=== PATIENT | male | born 1965 | race Two or more races ===

== ENCOUNTER 2016-11-04 11:59 | Emergency (ER) | payer SELFPAY ==
[~2016-11-04] VITALS: Ht 160 cm; Wt 81.6 kg
[2016-11-04 12:55] VITALS: BP 145/96
[2016-11-04] MEDS ORDERED: NAPROXEN 500 MG TABLET PO STA (14:16)
[2016-11-04] MEDS ORDERED: HYDROCODONE/APAP 5/325MG TABLET. PO ONE (14:30)
[2016-11-04] MEDS ORDERED: CYCLOBENZAPRINE 10 MG TABLET. PO ONE (14:30)
[2016-11-04] MEDS ORDERED: CYCL10TA2 PO (14:32)
[2016-11-04] MEDS ORDERED: NAPR500T8 PO (14:32)
[2016-11-04] MEDS ORDERED: HYDR-971 PO (14:32)
--- NOTE | 2016-11-04 14:32 | PHYS DOC ---
Past Medical History Past Medical History: Kidney Stone Past Surgical History: Cholecystectomy Additional Past Surgical Histo: KIDNEY STONES Alcohol Use: Occasionally Drug Use: None Adult General Chief Complaint Chief Complaint: BACK PAIN OR INJURY HPI HPI Patient is a 51 year old male who presents with 10 out of 10 mid to low back pain that began 6 days ago. 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 Patient denies any trauma. Denies any loss of bowel bladder function. Denies any pain radiating to bilateral lower extremities. Denies any numbness or tingling to bilateral lower extremities. Patient denies any urgency frequency or dysuria, denies any chance she could have a kidney stone. Denies any hematuria. Review of Systems Review of Systems Constitutional: Denies fever or chills [] Eyes: Denies change in visual acuity, redness, or eye pain [] HENT: Denies nasal congestion or sore throat : Denies dysuria or hematuria [] Musculoskeletal:mid and low back pain Integument: Denies rash or skin lesions [] Neurologic: Denies headache, focal weakness or sensory changes [] Endocrine: Denies polyuria or polydipsia [] Current Medications Current Medications Current Medications Medications (Trade) Dose Ordered Sig/Ole Start Time Stop Time Status Last Admin Dose Admin Acetaminophen/ Hydrocodone Bitart (Lortab 5/325) 1 tab 1X ONCE 11/04/16 14:30 11/04/16 14:31 Cyclobenzaprine HCl (Flexeril) 10 mg 1X ONCE 11/04/16 14:30 11/04/16 14:31 Naproxen (Naprosyn) 500 mg 1X STAT 11/04/16 14:16 11/04/16 14:17 DC Allergies Allergies Allergies Coded Allergies Type Severity Reaction Last Updated Verified No Known Drug Allergies 04/25/15 No Physical Exam Physical Exam Constitutional: Well developed, well nourished, no acute distress, non-toxic appearance. [] HENT: Normocephalic, atraumatic, bilateral external ears normal, oropharynx moist, no oral exudates, nose normal. [] Skin: Warm, dry, no erythema, no rash. [] Back: Diffuse paraspinal muscle tenderness to bilateral mid and lower back, no midline tenderness, no CVA tenderness. [] Extremities: No tenderness, no cyanosis, no clubbing, ROM intact, no edema. [] Neurologic: Alert and oriented X 3, normal motor function, normal sensory function, no focal deficits noted. [] Psychologic: Affect normal, judgement normal, mood normal. [] Current Patient Data Vital Signs Vital Signs Date Time Temp Pulse Resp B/P Pulse Ox O2 Delivery O2 Flow Rate FiO2 11/04/16 12:55 97.6 61 18 97 Room Air 97.6 EKG EKG [] Radiology/Procedures Radiology/Procedures [] Course & Med Decision Making Course & Med Decision Making Pertinent Labs and Imaging studies reviewed. (See chart for details) Patient is in the ED with back pain that appears to be originating from heavy lifting at work. He was discharged with instructions to follow-up with the PCP in one week. Discharged with naproxen and Flexeril and [place] 10 tablets. Provided return precautions and discharged in stable condition. Dragon Disclaimer Dragon Disclaimer This electronic medical record was generated, in whole or in part, using a voice recognition dictation system. Departure Departure Impression: Primary Impression: Low back pain Additional Impression: Thoracic back pain Disposition: 01 HOME, SELF-CARE Condition: STABLE Referrals: NO PCP (PCP) Follow-up with your own doctor in one week Patient Instructions: Back Pain, Adult, [id number] Additional Instructions: You were seen for back pain. We recommend you avoid heavy lifting for the next 7 days. Apply heat to your back. Follow-up with your doctor in one week. Come back to the ED for any concerning symptoms. Scripts Cyclobenzaprine Hcl 10 Mg Tablet1 Tab PO TID #30 TAB Prov:BARAK SHETTY APRN 11/04/16 Naproxen 500 Mg Tablet.dr1 Tab PO BID #60 TAB Ref 2 Prov:BARAK SHETTY APRN 11/04/16 Hydrocodone/Apap 5-325 ([place] 5-325 Tablet)1 Each Tablet1-2 Tab PO Q4-6HRS #10 TAB Prov:BARAK SHETTY APRN 11/04/16 Problem Qualifiers Primary Impression: Low back pain Chronicity: acute Back pain laterality: bilateral Sciatica presence: without sciatica Qualified Code: M54.5 - Low back pain Additional Impression: Thoracic back pain Chronicity: acute Back pain laterality: bilateral Qualified Code: M54.6 - Pain in thoracic spine BARAK SHETTY APRN Nov 04, 2016 14:32
== END 2016-11-04 14:34 | disposition home or self-care (01) ==
LOC: ER 12:10
DX: M54.5 Low back pain (principal); M54.6 Pain in thoracic spine; Z87.442 Personal history of urinary calculi; Z90.49 Acquired absence of other specified parts of digestive tract
CPT/HCPCS: 99284

== ENCOUNTER 2021-06-30 23:50 | Inpatient (IN) | payer SELFPAY ==
[~2021-06-30] VITALS: Ht 160 cm; Wt 84.1 kg
[~2021-06-30 23:50] MED LIST: CYCL10TA19 PO; HYDR-3164 PO; NAPR500T8 PO
[2021-07-01] VITALS (28 sets, daily range): BP systolic 91–141; BP diastolic 61–95
[2021-07-01] MEDS ORDERED: HEPARIN for SUB-Q USE 5,000 UNIT/ML VIAL. SQ ONE (00:15)
[2021-07-01] MEDS ORDERED: ASPIRIN CHEWABLE 81 MG TABLET. PO ONE (00:15)
[2021-07-01] MEDS ORDERED: HEPARIN for IV BOLUS 10,000 UNIT/10 ML VIAL. IV ONE (00:15)
[2021-07-01 00:17] LABS: BASO % 0 % (0-3); EOS % 0 % (0-3); HEMATOCRIT 47.5 % (39.0-53.0); HEMOGLOBIN 16.3 g/dL (13.0-17.5); LYMPH # 3.6 x10^3/uL (1.0-4.8); LYMPH % 27 % (24-48); MEAN CORPUSCULAR HEMOGLOBIN 31 pg (25-35); MEAN CORPUSCULAR HGB CONC 34 g/dL (31-37); MEAN CORPUSCULAR VOLUME 92 fL (79-100); MONO # 0.9 x10^3/uL (0.0-1.1); MONO % 7 % (0-9); NEUT # 8.6 x10^3/uL (1.8-7.7); NEUT % 65 % (31-73); PLATELET COUNT 369 x10^3/uL (140-400); RED BLOOD COUNT 5.18 x10^6/uL (4.30-5.70); RED CELL DISTRIBUTION WIDTH 14.1 % (11.5-14.5); WHITE BLOOD COUNT 13.2 x10^3/uL (4.0-11.0)
--- NOTE | 2021-07-01 00:18 | PHYS DOC ---
Past Medical History Past Medical History: Kidney Stone Past Surgical History: Cholecystectomy Additional Past Surgical Histo: KIDNEY STONES Smoking Status: Current Every Day Smoker Alcohol Use: Occasionally Drug Use: None General Adult EDM: Chief Complaint: CHEST PAIN HPI: HPI: Patient is a 55 year old male who present to ER due to substernal chest pain that started 1 hour ago. Patient denies any nausea vomiting. Patient denies any cough or fever patient denies any history of hypertension or diabetic history of coronary artery disease. Patient admitted of using cocaine earlier today. Patient is currently still in pain at this time Review of Systems: Review of Systems: Constitutional: Denies fever or chills. [] Eyes: Denies change in visual acuity. [] HENT: Denies nasal congestion or sore throat. [] Respiratory: Denies cough or shortness of breath. [] Cardiovascular: Positive for chest pain, no edema GI: Denies abdominal pain, nausea, vomiting, bloody stools or diarrhea. [] : Denies dysuria. [] Musculoskeletal: Denies back pain or joint pain. [] Integument: Denies rash. [] Neurologic: Denies headache, focal weakness or sensory changes. [] Endocrine: Denies polyuria or polydipsia. [] Lymphatic: Denies swollen glands. [] Psychiatric: Denies depression or anxiety. [] Heart Score: C/O Chest Pain: Yes HEART Score for Chest Pain: HEART Score for Chest Pain Response (Comments) Value History Highly Suspicious [address] Depression 2 Age >45 - < 65 1 Risk Factors >3 Risk Factors or Hx CAD 2 Troponin >1-<3x Normal Limit 1 Total 8 Risk Factors: Risk Factors: DM, Current or recent (<one month) smoker, HTN, HLP, family history of CAD, obesity. Risk Scores: Score 0 - 3: 2.5% MACE over next 6 weeks - Discharge Home Score 4 - 6: 20.3% MACE over next 6 weeks - Admit for Clinical Observation Score 7 - 10: 72.7% MACE over next 6 weeks - Early Invasive Strategies Current Medications: Current Medications Medications (Trade) Dose Ordered Sig/Ole Start Time Stop Time Status Last Admin Dose Admin Aspirin (Aspirin Chewable) 324 mg 1X ONCE 07/01/21 00:15 07/01/21 00:16 Heparin Sodium (Porcine) (Heparin Sodium) 4,000 unit 1X ONCE 07/01/21 00:15 11/1/21 00:16 Allergies: Allergies: Allergies Coded Allergies Type Severity Reaction Last Updated Verified No Known Drug Allergies 04/25/15 No Physical Exam: PE: Constitutional: Well developed, well nourished, no acute distress, non-toxic appearance. [] HENT: Normocephalic, atraumatic, bilateral external ears normal, oropharynx moist, no oral exudates, nose normal. [] Eyes: PERRLA, EOMI, conjunctiva normal, no discharge. [] Neck: Normal range of motion, no tenderness, supple, no stridor. [] Cardiovascular:Heart rate regular rhythm, no murmur [] Lungs & Thorax: Bilateral breath sounds clear to auscultation [] Abdomen: Bowel sounds normal, soft, no tenderness, no masses, no pulsatile masses. [] Skin: pale and diaphoresis Back: No tenderness, no CVA tenderness. [] Extremities: No tenderness, no cyanosis, no clubbing, ROM intact, no edema. [] Neurologic: Alert and oriented X 3, normal motor function, normal sensory function, no focal deficits noted. [] Psychologic: Affect normal, judgement normal, mood normal. [] Current Patient Data: Labs: Laboratory Tests Test 07/01/21 00:05 White Blood Count 13.2 x10^3/uL Red Blood Count 5.18 x10^6/uL Hemoglobin 16.3 g/dL Hematocrit 47.5 % Mean Corpuscular Volume 92 fL Mean Corpuscular Hemoglobin 31 pg Mean Corpuscular Hemoglobin Concent 34 g/dL Red Cell Distribution Width 14.1 % Platelet Count 369 x10^3/uL Neutrophils (%) (Auto) 65 % Lymphocytes (%) (Auto) 27 % Monocytes (%) (Auto) 7 % Eosinophils (%) (Auto) 0 % Basophils (%) (Auto) 0 % Neutrophils # (Auto) 8.6 x10^3/uL Lymphocytes # (Auto) 3.6 x10^3/uL Monocytes # (Auto) 0.9 x10^3/uL Eosinophils # (Auto) 0.0 x10^3/uL Basophils # (Auto) 0.0 x10^3/uL Current Medications Medications (Trade) Dose Ordered Sig/Ole Route PRN Reason Start Time Stop Time Status Last Admin Dose Admin Aspirin (Aspirin Chewable) 324 mg 1X ONCE PO 07/01/21 00:15 07/01/21 00:16 DC 07/01/21 00:18 Heparin Sodium (Porcine) (Heparin Sodium) 4,000 unit 1X ONCE IV 07/01/21 00:15 07/01/21 00:16 DC 07/01/21 00:21 Heparin Sodium (Porcine) (Heparin Sodium) 5,000 unit STK-MED ONCE SQ 07/01/21 00:15 07/01/21 00:15 DC EKG: EKG: EKG was done at 000, heart rate of 87 bpm, SINUS RHYTHM, ST SEGMENT ELEVATION V2, V3, V4,V5, V6, aVL, ST SEGMENT DEPRESSION IN III, aVF Radiology/Procedures: Radiology/Procedures: Chest x-ray did not show any acute PROBLEM. Course & Med Decision Making: Course & Med Decision Making Pertinent Labs and Imaging studies reviewed. (See chart for details) Patient is a 55-year-old male who present to ER due to substernal chest pain, EKG is consistent with STEMI. I discussed with the director of occupational health on-call Dr. Luis Enrique Rivera AT 005 AM, AGREED TO COME IN TO TAKE PATIENT TO DIFFERENTIAL SPECIALIST URGENTLY. HE RECOMMENDED TO GIVE PATIENT FULL DOSE ASPIRIN AND 4000 UNITS OF HEPARIN IV BOLUS. Discussed with hospitalist on-call Dr. Elvis Cunningham who agreed to admit the patient. Dragon Disclaimer: Kimmie Disclaimer: This electronic medical record was generated, in whole or in part, using a voice recognition dictation system. Departure Departure Impression: Primary Impression: STEMI (ST elevation myocardial infarction) Disposition: ADMITTED INPATIENT Admitting Physician: LANIE (DR. SHELTON) Condition: STABLE Referrals: NO PCP (PCP) SOFIA LEHMAN DO Jul 01, 2021 00:18
--- NOTE | 2021-07-01 00:19 | EKG ---
[facility] [address] [place] [address] Test Date: 2021-07-01 Test Time: 00:00:14 Pat Name: JOSSELINE DAI Department: Room: Gender: M Tool Crib Attendant: : 1965 Requested By: SOFIA LEHMAN Order Number: [id number] Reading MD: Luis Enrique Guzman Measurements Intervals [place] Rate: 87 P: 0 CT: 176 QRS: -41 QRSD: 90 T: -1 QT: 346 QTc: 417 Interpretive Statements SINUS RHYTHM QRS(T) CONTOUR ABNORMALITY CONSISTENT WITH POSSIBLY ACUTE OR RECENT ANTERIOR INFARCT ST & T ABNORMALITY, CONSIDER INFERIOR ISCHEMIA OR LEFT VENTRICULAR STRAIN No previous ECG available for comparison Electronically Signed On 07-08-2021 10:56:35 BLOOD TESTER FOWL by Luis Enrique Guzman
[2021-07-01] MEDS ORDERED: MIDAZOLAM HCL/PF 2 MG/2 ML VIAL. ONE (00:29)
[2021-07-01] MEDS ORDERED: fentaNYL PF VIAL 100 MCG/2 ML VIAL ONE (00:29)
[2021-07-01 00:30] LABS: PROTHROMBIN TIME PATIENT 12.6 SEC (11.7-14.0)
[2021-07-01] MEDS ORDERED: LIDOCAINE 1% Multi-Dose 20 ML VIAL. ONE (00:30)
[2021-07-01] MEDS ORDERED: IODIXANOL 320 MG/ML 100 ML VIAL. ONE ×2 (00:30→01:19)
[2021-07-01 00:32] LABS: CALCIUM 8.8 mg/dL (8.5-10.1); CREATININE 1.3 mg/dL (0.7-1.3); GFR 57.3; POTASSIUM 3.3 mmol/L (3.5-5.1)
[2021-07-01 00:35] LABS: ALBUMIN 4.2 g/dL (3.4-5.0); ALBUMIN/GLOBULIN RATIO 1.1 (1.0-1.7); MAGNESIUM 2.2 mg/dL (1.8-2.4); TOTAL BILIRUBIN 0.4 mg/dL (0.2-1.0); TOTAL PROTEIN 7.9 g/dL (6.4-8.2)
--- NOTE | 2021-07-01 00:46 | RAD ---
XR CHEST 1V 07/01/2021 12:16 AM INDICATION: Chest pain COMPARISON: None available TECHNIQUE: Portable frontal view of the chest is provided. FINDINGS: The cardiomediastinal silhouette is within normal limits. Lungs are clear. There are no significant pleural effusions. There is no pulmonary vascular congestion. No pneumothora x. No suspicious osseous abnormality. IMPRESSION: There is no acute cardiopulmonary process. Electronically signed by: Gail Acevedo MD (07/01/2021 12:44 AM) [facility]
[2021-07-01] MEDS ORDERED: BIVALIRUDIN 250 MG VIAL. IV ONE ×2 (01:07→01:45)
[2021-07-01] MEDS ORDERED: AMIODARONE 150 MG/3 ML VIAL ONE (01:15)
[2021-07-01] MEDS ORDERED: IODIXANOL 320 MG/ML 100 ML VIAL. IART ONE (01:15)
[2021-07-01] MEDS ORDERED: MIDAZOLAM HCL/PF 2 MG/2 ML VIAL. IV ONE (01:15)
[2021-07-01] MEDS ORDERED: fentaNYL PF VIAL 100 MCG/2 ML VIAL IV ONE (01:15)
[2021-07-01] MEDS ORDERED: LIDOCAINE 1% Multi-Dose 20 ML VIAL. INJ ONE (01:15)
[2021-07-01] MEDS ORDERED: ONDANSETRON PF 4 MG/2 ML VIAL. ONE (01:29)
[2021-07-01] MEDS ORDERED: AMIODARONE 150 MG/3 ML VIAL IVP ONE (01:45)
[2021-07-01] MEDS ORDERED: AMIODARONE 450 MG in IV DEXTROSE 5% 250 ML IV ONE (01:45)
[2021-07-01] MEDS ORDERED: ONDANSETRON PF 4 MG/2 ML VIAL. IVP ONE (01:45)
[2021-07-01] MEDS ORDERED: CLOPIDOGREL BISULFATE 75 MG TABLET PO ONE (01:45)
--- NOTE | 2021-07-01 01:57 | PDOC2 ---
CONSULT Date of Consult Date of Consult DATE: 07/01/21 TIME: 01:48 Reason for Consult Reason for Consult: chest pain, STEMI Referring Physician Referring Physician: Dr. Barnes Identification/Chief Complaint Chief Complaint Chest pain Source Source: Chart review, Patient History of Present Illness Reason for Visit: The patient is a 55 year old Croatian speaking male who presented to the ER with a history of one hour of chest pain. He reports using EtOH and cocaine earlier this evening. He denies a history of CAD. His EKG is consistent with an acute anterior IA. He was given MSO4 for pain and was treated with IV heparin and ASA. Risks and benefits of an emergency heart cath were discussed with the patient and his - consent was obtained. Past Medical History Cardiovascular: HTN Past Surgical History Past Surgical History: No pertinent history Family History Family History: Hypertension Social History ALCOHOL: social Drugs: Cocaine Current Problem List Problem List Problems Medical Problems: (1) STEMI (ST elevation myocardial infarction) Status: Acute Current Medications Current Medications Current Medications Aspirin (Aspirin Chewable) 324 mg 1X ONCE PO Last administered on 07/01/21at 00:18; Start 07/01/21 at 00:15; Stop 07/01/21 at 00:16; Status DC Heparin Sodium (Porcine) (Heparin Sodium) 4,000 unit 1X ONCE IV Last administered on 07/01/21at 00:21; Start 07/01/21 at 00:15; Stop 07/01/21 at 00:16; Status DC Heparin Sodium (Porcine) (Heparin Sodium) 5,000 unit STK-MED ONCE SQ ; Start at 00:15; Stop 07/01/21 at 00:15; Status DC Fentanyl Citrate (Fentanyl 2ml Vial) 100 mcg STK-MED ONCE .ROUTE ; Start 07/01/21 at 00:29; Stop 07/01/21 at 00:30; Status DC Midazolam HCl (Versed) 2 mg STK-MED ONCE .ROUTE ; Start 07/01/21 at 00:29; Stop 07/01/21 at 00:30; Status DC Iodixanol (Visipaque 320) 100 ml STK-MED ONCE .ROUTE ; Start 07/01/21 at 00:30; Stop 07/01/21 at 00:30; Status DC Lidocaine HCl (Lidocaine 1% 20ml Vial) 20 ml STK-MED ONCE .ROUTE ; Start 07/01/21 at 00:30; Stop 07/01/21 at 00:30; Status DC Heparin Sodium/ Sodium Chloride 500 ml @ As Directed STK-MED ONCE .ROUTE ; Start 07/01/21 at 00:30; Stop 07/01/21 at 00:31; Status DC Heparin Sodium/ Sodium Chloride 500 ml @ As Directed STK-MED ONCE .ROUTE ; Start 07/01/21 at 00:42; Stop 07/01/21 at 00:42; Status DC Potassium Chloride/Water 100 ml @ 50 mls/hr Q2H IV ; Start 07/01/21 at 00:45; Stop 07/01/21 at 04:44 Heparin Sodium/ Sodium Chloride (HEPARIN for ARTERIAL LINE FLUSH) 1,000 unit 1X ONCE IART ; Start 07/01/21 at 01:15; Stop 07/01/21 at 01:16; Status DC Midazolam HCl (Versed) 2 mg 1X ONCE IV ; Start 07/01/21 at 01:15; Stop 07/01/21 at 01:16; Status DC Fentanyl Citrate (Fentanyl 2ml Vial) 100 mcg 1X ONCE IV ; Start 07/01/21 at 01:15; Stop 07/01/21 at 01:16; Status DC Iodixanol (Visipaque 320) 100 ml 1X ONCE IART ; Start 07/01/21 at 01:15; Stop 07/01/21 at 01:16; Status DC Lidocaine HCl (Lidocaine 1% 20ml Vial) 20 ml 1X ONCE INJ ; Start 07/01/21 at 01:15; Stop 07/01/21 at 01:16; Status DC Bivalirudin (Angiomax) 250 mg STK-MED ONCE IV ; Start 07/01/21 at 01:07; Stop 07/01/21 at 01:07; Status DC Dopamine HCl/ Dextrose 250 ml @ As Directed STK-MED ONCE IV ; Start 07/01/21 at 01:10; Stop 07/01/21 at 01:11; Status DC Amiodarone HCl (Cordarone) 150 mg STK-MED ONCE .ROUTE ; Start 07/01/21 at 01:15; Stop 07/01/21 at 01:15; Status DC Iodixanol (Visipaque 320) 100 ml STK-MED ONCE .ROUTE ; Start 07/01/21 at 01:19; Stop 07/01/21 at 01:19; Status DC Amiodarone HCl 450 mg/Dextrose 259 ml @ 33 mls/hr 1X ONCE IV ; Start 07/01/21 at 01:45; Stop 07/01/21 at 09:35 Ondansetron HCl (Zofran) 4 mg STK-MED ONCE .ROUTE ; Start 07/01/21 at 01:29; Stop 07/01/21 at 01:30; Status DC Bivalirudin (Angiomax) 250 mg 1X ONCE IV ; Start 07/01/21 at 01:45; Stop 07/01/21 at 01:46; Status DC Clopidogrel Bisulfate (Plavix) 600 mg 1X ONCE PO ; Start 07/01/21 at 01:45; Stop 07/01/21 at 01:46; Status DC Ondansetron HCl (Zofran) 4 mg 1X ONCE IVP ; Start 07/01/21 at 01:45; Stop 07/01/21 at 01:46; Status DC Amiodarone HCl (Cordarone) 300 mg 1X ONCE IVP ; Start 07/01/21 at 01:45; Stop 07/01/21 at 01:46; Status DC Amiodarone HCl 450 mg/Dextrose 259 ml @ 0 mls/hr 1X ONCE IV ; Start 07/01/21 at 01:45; Stop 07/01/21 at 01:46; Status UNV Dopamine HCl/ Dextrose 250 ml @ 16.875 mls/ hr 1X ONCE IV ; Start 07/01/21 at 01:45; Stop 07/01/21 at 16:33 Active Scripts Active Cyclobenzaprine Hcl 10 Mg Tablet 1 Tab PO TID Naproxen 500 Mg Tablet. 1 Tab PO BID [place] 5-325 Tablet (Acetaminophen/Hydrocodone Bitart) 1 Each Tablet 1-2 Tab PO Q4-6HRS Allergies Allergies: Coded Allergies: No Known Drug Allergies (Unverified , 04/25/15) ROS Respiratory: YES: Shortness of breath Cardiovascular: yes Chest Pain Physical Exam General: moderate distress HEENT: Atraumatic Lungs: Clear to auscultation Heart: Other (regular rhythm) Abdomen: Normal bowel sounds Vitals VITALS Vital Signs Date Time Temp Pulse Resp B/P (MAP) Pulse Ox O2 Delivery O2 Flow Rate FiO2 07/01/21 00:33 84 16 113/81 (92) 97 07/01/21 00:18 Room Air 07/01/21 00:00 98.2 98.0 98.2 Labs Labs Laboratory Tests Test 07/01/21 00:05 07/01/21 00:33 White Blood Count 13.2 x10^3/uL (4.0-11.0) Red Blood Count 5.18 x10^6/uL (4.30-5.70) Hemoglobin 16.3 g/dL (13.0-17.5) Hematocrit 47.5 % (39.0-53.0) Mean Corpuscular Volume 92 fL (79-100) Mean Corpuscular Hemoglobin 31 pg (25-35) Mean Corpuscular Hemoglobin Concent 34 g/dL (31-37) Red Cell Distribution Width 14.1 % (11.5-14.5) Platelet Count 369 x10^3/uL (140-400) Neutrophils (%) (Auto) 65 % (31-73) Lymphocytes (%) (Auto) 27 % (24-48) Monocytes (%) (Auto) 7 % (0-9) Eosinophils (%) (Auto) 0 % (0-3) Basophils (%) (Auto) 0 % (0-3) Neutrophils # (Auto) 8.6 x10^3/uL (1.8-7.7) Lymphocytes # (Auto) 3.6 x10^3/uL (1.0-4.8) Monocytes # (Auto) 0.9 x10^3/uL (0.0-1.1) Eosinophils # (Auto) 0.0 x10^3/uL (0.0-0.7) Basophils # (Auto) 0.0 x10^3/uL (0.0-0.2) Prothrombin Time 12.6 SEC (11.7-14.0) Prothromb Time International Ratio 0.9 (0.8-1.1) Activated Partial Thromboplast Time 26 SEC (24-38) Sodium Level 141 mmol/L (136-145) Potassium Level 3.3 mmol/L (3.5-5.1) Chloride Level 100 mmol/L (98-107) Carbon Dioxide Level 23 mmol/L (21-32) Anion Gap 18 (6-14) Blood Urea Nitrogen 14 mg/dL (8-26) Creatinine 1.3 mg/dL (0.7-1.3) Estimated GFR (Cockcroft-Gault) 57.3 BUN/Creatinine Ratio 11 (6-20) Glucose Level 121 mg/dL (70-99) Calcium Level 8.8 mg/dL (8.5-10.1) Magnesium Level 2.2 mg/dL (1.8-2.4) Total Bilirubin 0.4 mg/dL (0.2-1.0) Aspartate Amino Transf (AST/SGOT) 20 U/L (15-37) Alanine Aminotransferase (ALT/SGPT) 44 U/L (16-63) Alkaline Phosphatase 79 U/L (46-116) Troponin I High Sensitivity 20 ng/L (4-75) FC-Kuw-[id number]-Type Natriuretic Peptide 34 pg/mL (0-124) Total Protein 7.9 g/dL (6.4-8.2) Albumin 4.2 g/dL (3.4-5.0) Albumin/Globulin Ratio 1.1 (1.0-1.7) Lipase 151 U/L (73-393) SARS-CoV-2 Antigen (Rapid) Negative (NEGATIVE) Laboratory Tests Test 07/01/21 00:05 07/01/21 00:33 White Blood Count 13.2 x10^3/uL (4.0-11.0) Red Blood Count 5.18 x10^6/uL (4.30-5.70) Hemoglobin 16.3 g/dL (13.0-17.5) Hematocrit 47.5 % (39.0-53.0) Mean Corpuscular Volume 92 fL (79-100) Mean Corpuscular Hemoglobin 31 pg (25-35) Mean Corpuscular Hemoglobin Concent 34 g/dL (31-37) Red Cell Distribution Width 14.1 % (11.5-14.5) Platelet Count 369 x10^3/uL (140-400) Neutrophils (%) (Auto) 65 % (31-73) Lymphocytes (%) (Auto) 27 % (24-48) Monocytes (%) (Auto) 7 % (0-9) Eosinophils (%) (Auto) 0 % (0-3) Basophils (%) (Auto) 0 % (0-3) Neutrophils # (Auto) 8.6 x10^3/uL (1.8-7.7) Lymphocytes # (Auto) 3.6 x10^3/uL (1.0-4.8) Monocytes # (Auto) 0.9 x10^3/uL (0.0-1.1) Eosinophils # (Auto) 0.0 x10^3/uL (0.0-0.7) Basophils # (Auto) 0.0 x10^3/uL (0.0-0.2) Prothrombin Time 12.6 SEC (11.7-14.0) Prothromb Time International Ratio 0.9 (0.8-1.1) Activated Partial Thromboplast Time 26 SEC (24-38) Sodium Level 141 mmol/L (136-145) Potassium Level 3.3 mmol/L (3.5-5.1) Chloride Level 100 mmol/L (98-107) Carbon Dioxide Level 23 mmol/L (21-32) Anion Gap 18 (6-14) Blood Urea Nitrogen 14 mg/dL (8-26) Creatinine 1.3 mg/dL (0.7-1.3) Estimated GFR (Cockcroft-Gault) 57.3 BUN/Creatinine Ratio 11 (6-20) Glucose Level 121 mg/dL (70-99) Calcium Level 8.8 mg/dL (8.5-10.1) Magnesium Level 2.2 mg/dL (1.8-2.4) Total Bilirubin 0.4 mg/dL (0.2-1.0) Aspartate Amino Transf (AST/SGOT) 20 U/L (15-37) Alanine Aminotransferase (ALT/SGPT) 44 U/L (16-63) Alkaline Phosphatase 79 U/L (46-116) Troponin I High Sensitivity 20 ng/L (4-75) QH-App-Z-Type Natriuretic Peptide 34 pg/mL (0-124) Total Protein 7.9 g/dL (6.4-8.2) Albumin 4.2 g/dL (3.4-5.0) Albumin/Globulin Ratio 1.1 (1.0-1.7) Lipase 151 U/L (73-393) SARS-CoV-2 Antigen (Rapid) Negative (NEGATIVE) Assessment/Plan Assessment/Plan 1. Acute anterior ST elevated IA. Complicated by recent cocaine use. ASA and heparin given. Consent was obtained for an emergent cath and possible PCI. The patient is being brought to the orthodontic lab technician. 2. Cocaine use. 3. Possible HTN. 4. Unknown chol.level. Will check morning lab. HARDEEP SCHMITZ MD Jul 01, 2021 01:57
[2021-07-01] MEDS ORDERED: CLOPIDOGREL BISULFATE 75 MG TABLET ONE (01:58)
--- NOTE | 2021-07-01 01:59 | PDOC4 ---
PROCEDURE Procedure Brief initial cath note. Mid LAD occlusion. No significant disease in the L main, LCX or RCA. LAD opened with a 3.0 x 18 TRINO. Continue post IL protocol. Full report to follow. HARDEEP SCHMITZ MD Jul 01, 2021 01:59
[2021-07-01] MEDS ORDERED: ONDANSETRON PF 4 MG/2 ML VIAL. IVP PRN (02:00)
[2021-07-01] MEDS ORDERED: AMIODARONE 150 MG in IV DEXTROSE 5% 100ML 100 ML IV PRN (02:00)
[2021-07-01] MEDS ORDERED: ATROPINE 0.5 MG/5 ML DISP.SYRINGE. IV PRN (02:00)
[2021-07-01] MEDS ORDERED: IV NORMAL SALINE 1000ML BAG 1,000 ML IV SCH ×2 (02:00→02:15)
[2021-07-01] MEDS ORDERED: ACETAMINOPHEN 325 MG TABLET. PO PRN ×2 (02:00→02:15)
[2021-07-01] MEDS ORDERED: 0.9 % SODIUM CHLORIDE 10 ML DISP.SYRIN. IV PRN ×2 (02:00→02:15)
[2021-07-01] MEDS ORDERED: fentaNYL PF VIAL 100 MCG/2 ML VIAL IV PRN (02:15)
--- NOTE | 2021-07-01 02:45 | NUR ---
Patient was admitted from [facility]. Dressing to right groin area dry and intact. Patient is mainly speaking and is drowsy from meds given in the chemical lab supervisor. Family waiting in the hallway to see patient when he is settled in. Complains of lower abd pain and requested Fentanyl. Was placed on a bedpan several times with no results. Both IV's have great blood returns. Dopamine and Amiodarone are in the right site and MIV and Potassium are in the left.
[2021-07-01] MEDS: fentaNYL PF VIAL 100 MCG/2 ML VIAL IV PRN ×2 (02:57→07:58)
[2021-07-01] MEDS: POTASSIUM CHLORIDE 20MEQ 100 ML IV SCH ×2 (02:58→06:18)
[2021-07-01] MEDS ORDERED: LISINOPRIL 5 MG TABLET. PO SCH (09:00)
[2021-07-01] MEDS: CALCIUM CARBONATE 500 MG TAB.CHEW PO PRN ×2 (10:50→22:33)
[2021-07-01] MEDS: NITROGLYCERIN SUBLINGUAL 0.4 MG BOTTLE OF 25. SL PRN ×2 (10:50→11:50)
[2021-07-01] MEDS ORDERED: HYDROcodone/APAP 5/325MG 1 TAB TABLET PO PRN (11:15)
[2021-07-01 12:01] LABS: CALCIUM 8.5 mg/dL (8.5-10.1); CREATININE 0.9 mg/dL (0.7-1.3); GFR 87.6; MAGNESIUM 2.3 mg/dL (1.8-2.4); POTASSIUM 4.7 mmol/L (3.5-5.1)
[2021-07-01] MEDS ORDERED: NITROGLYCERIN PREMIX 250 ML IV PRN (12:30)
[2021-07-01] MEDS ORDERED: fentaNYL PF VIAL 100 MCG/2 ML VIAL IVP PRN (12:30)
--- NOTE | 2021-07-01 12:31 | PDOC1 ---
History and Physical Date of Service: DOS: DATE: 07/01/21 TIME: 12:23 Chief Complaint: Problems: (1) STEMI (ST elevation myocardial infarction) History of Present Illness: HPI: Patient is a 55-year-old male presented to the emergency room overnight due to 1 hour history of chest pain. Described the pain as substernal. He had a used alcohol and cocaine earlier in the day. Denies any sort of heart history. On arrival EKG consistent with anterior TX. Started on heparin drip given high dose aspirin. He was denying that time any sort of headache, dizziness, shortness of breath, abdominal pain, dysuria, joint pain. He was taken emergently to the [facility] and required 1 stent placement in LAD. He is required dopamine drip since the procedure. Past Medical/Surgical History: PMH/PSH: Reports a history of kidney stones Allergies: Allergies: Coded Allergies: No Known Drug Allergies (Unverified , 04/25/15) Family History: Family History: Patient denies any known history Social History: Social History: Current everyday tobacco smoker. Recreational drug use. Social ethanol use Current Medications: Current Medications Current Medications Aspirin (Aspirin Chewable) 324 mg 1X ONCE PO Last administered on 07/01/21at 00:18; Start 07/01/21 at 00:15; Stop 07/01/21 at 00:16; Status DC Heparin Sodium (Porcine) (Heparin Sodium) 4,000 unit 1X ONCE IV Last administered on 07/01/21at 00:21; Start 07/01/21 at 00:15; Stop 07/01/21 at 00:16; Status DC Heparin Sodium (Porcine) (Heparin Sodium) 5,000 unit STK-MED ONCE SQ ; Start 07/01/21 at 00:15; Stop 07/01/21 at 00:15; Status DC Fentanyl Citrate (Fentanyl 2ml Vial) 100 mcg STK-MED ONCE .ROUTE ; Start 07/01/21 at 00:29; Stop 07/01/21 at 00:30; Status DC Midazolam HCl (Versed) 2 mg STK-MED ONCE .ROUTE ; Start 07/01/21 at 00:29; Stop 07/01/21 at 00:30; Status DC Iodixanol (Visipaque 320) 100 ml STK-MED ONCE .ROUTE ; Start 07/01/21 at 00:30; Stop 07/01/21 at 00:30; Status DC Lidocaine HCl (Lidocaine 1% 20ml Vial) 20 ml STK-MED ONCE .ROUTE ; Start 07/01/21 at 00:30; Stop 07/01/21 at 00:30; Status DC Heparin Sodium/ Sodium Chloride 500 ml @ As Directed STK-MED ONCE .ROUTE ; Start 07/01/21 at 00:30; Stop 07/01/21 at 00:31; Status DC Heparin Sodium/ Sodium Chloride 500 ml @ As Directed STK-MED ONCE .ROUTE ; Start 07/01/21 at 00:42; Stop 07/01/21 at 00:42; Status DC Potassium Chloride/Water 100 ml @ 50 mls/hr Q2H IV Last administered on 07/01/21at 06:18; Start 07/01/21 at 00:45; Stop 07/01/21 at 04:44; Status DC Heparin Sodium/ Sodium Chloride (HEPARIN for ARTERIAL LINE FLUSH) 1,000 unit 1X ONCE IART Last administered on 07/01/21at 01:15; Start 07/01/21 at 01:15; Stop 07/01/21 at 01:16; Status DC Midazolam HCl (Versed) 2 mg 1X ONCE IV Last administered on 07/01/21at 01:15; Start 07/01/21 at 01:15; Stop 07/01/21 at 01:16; Status DC Fentanyl Citrate (Fentanyl 2ml Vial) 100 mcg 1X ONCE IV Last administered on 07/01/21at 01:15; Start 07/01/21 at 01:15; Stop 07/01/21 at 01:16; Status DC Iodixanol (Visipaque 320) 100 ml 1X ONCE IART Last administered on 07/01/21at 01:15; Start 07/01/21 at 01:15; Stop 07/01/21 at 01:16; Status DC Lidocaine HCl (Lidocaine 1% 20ml Vial) 20 ml 1X ONCE INJ Last administered on 07/01/21at 01:15; Start 07/01/21 at 01:15; Stop 07/01/21 at 01:16; Status DC Bivalirudin (Angiomax) 250 mg STK-MED ONCE IV ; Start 07/01/21 at 01:07; Stop 07/01/21 at 01:07; Status DC Dopamine HCl/ Dextrose 250 ml @ As Directed STK-MED ONCE IV ; Start 07/01/21 at 01:10; Stop 07/01/21 at 01:11; Status DC Amiodarone HCl (Cordarone) 150 mg STK-MED ONCE .ROUTE ; Start 07/01/21 at 01:15; Stop 07/01/21 at 01:15; Status DC Iodixanol (Visipaque 320) 100 ml STK-MED ONCE .ROUTE ; Start 07/01/21 at 01:19; Stop 07/01/21 at 01:19; Status DC Amiodarone HCl 450 mg/Dextrose 259 ml @ 33 mls/hr 1X ONCE IV Last administered on 07/01/21at 02:50; Start 07/01/21 at 01:45; Stop 07/01/21 at 09:35; Status DC Ondansetron HCl (Zofran) 4 mg STK-MED ONCE .ROUTE ; Start 07/01/21 at 01:29; Stop 07/01/21 at 01:30; Status DC Bivalirudin (Angiomax) 250 mg 1X ONCE IV Last administered on 07/01/21at 01:45; Start 07/01/21 at 01:45; Stop 07/01/21 at 01:46; Status DC Clopidogrel Bisulfate (Plavix) 600 mg 1X ONCE PO Last administered on 07/01/21at 01:45; Start 07/01/21 at 01:45; Stop 07/01/21 at 01:46; Status DC Ondansetron HCl (Zofran) 4 mg 1X ONCE IVP Last administered on 07/01/21at 01:45; Start 07/01/21 at 01:45; Stop 07/01/21 at 01:46; Status DC Amiodarone HCl (Cordarone) 300 mg 1X ONCE IVP Last administered on 07/01/21at 01:45; Start 07/01/21 at 01:45; Stop 07/01/21 at 01:46; Status DC Amiodarone HCl 450 mg/Dextrose 259 ml @ 0 mls/hr 1X ONCE IV ; Start 07/01/21 at 01:45; Stop 07/01/21 at 01:46; Status UNV Dopamine HCl/ Dextrose 250 ml @ 16.875 mls/ hr 1X ONCE IV Last administered on 07/01/21at 01:45; Start 07/01/21 at 01:45; Stop 07/01/21 at 16:33 Clopidogrel Bisulfate (Plavix) 75 mg STK-MED ONCE .ROUTE ; Start 07/01/21 at 01:58; Stop 07/01/21 at 01:58; Status DC Sodium Chloride (Normal Saline Flush) 3 ml QSHIFT PRN IV AFTER MEDS AND BLOOD DRAWS; Start 07/01/21 at 02:00; Status Cancel Sodium Chloride 1,000 ml @ 60 mls/hr [id number] IV Last administered on 07/01/21at 02:59; Start 07/01/21 at 02:00; Stop 07/01/21 at 11:59; Status DC Aspirin (Ecotrin) 325 mg DAILYWBKFT PO ; Start 07/02/21 at 08:00 Clopidogrel Bisulfate (Plavix) 75 mg DAILYWBKFT PO ; Start 07/02/21 at 08:00 Lisinopril (Prinivil) 5 mg DAILY PO ; Start 07/01/21 at 09:00 Atorvastatin Calcium (Lipitor) 20 mg QHS PO ; Start 07/01/21 at 21:00; Status Cancel Acetaminophen (Tylenol) 650 mg PRN Q6HRS PRN PO MILD PAIN / TEMP > 100.3'F; Start 07/01/21 at 02:00 Fentanyl Citrate (Fentanyl 2ml Vial) 50 mcg PRN Q1HR PRN IV MODERATE OR SEVERE PAIN Last administered on 07/01/21at 07:58; Start 07/01/21 at 02:00; Stop 07/01/21 at 12:19; Status DC Ondansetron HCl (Zofran) 4 mg PRN Q6HRS PRN IVP NAUSEA/VOMITING Last administered on 07/01/21at 06:44; Start 07/01/21 at 02:00 Nitroglycerin (Nitrostat) 0.4 mg PRN Q5MIN PRN SL CHEST PAIN Last administered on 07/01/21at 11:50; Start 07/01/21 at 02:00 Amiodarone HCl 150 mg/Dextrose 103 ml @ 600 mls/hr 1X PRN PRN IV FOR VENTRICULAR TACHYCARDIA; Start 07/01/21 at 02:00 Atropine Sulfate (ATROPINE 0.5mg SYRINGE) 0.5 mg PRN 1X PRN IV BRADYCARDIA; Start 07/01/21 at 02:00 Sodium Chloride (Normal Saline Flush) 3 ml QSHIFT PRN IV AFTER MEDS AND BLOOD DRAWS; Start 07/01/21 at 02:15 Sodium Chloride 1,000 ml @ 60 mls/hr [id number] IV ; Start 07/01/21 at 02:15; Stop 07/01/21 at 12:14; Status Cancel Aspirin (Ecotrin) 325 mg DAILYWBKFT PO ; Start 07/02/21 at 08:00; Status UNV Clopidogrel Bisulfate (Plavix) 75 mg DAILYWBKFT PO ; Start 07/02/21 at 08:00; Status UNV Lisinopril (Prinivil) 5 mg DAILY PO ; Start 07/01/21 at 09:00; Status UNV Atorvastatin Calcium (Lipitor) 40 mg QHS PO ; Start 07/01/21 at 21:00 Acetaminophen (Tylenol) 650 mg PRN Q6HRS PRN PO MILD PAIN / TEMP > 100.3'F; Start 07/01/21 at 02:15; Status UNV Fentanyl Citrate (Fentanyl 2ml Vial) 50 mcg PRN Q1HR PRN IV MODERATE OR SEVERE PAIN; Start 07/01/21 at 02:15; Status UNV Calcium Carbonate/ Glycine (Tums) 500 mg PRN AFTMEALHC PRN PO INDIGESTION Last administered on 07/01/21at 10:50; Start 07/01/21 at 10:45 Acetaminophen/ Hydrocodone Bitart (Lortab 5/325) 1 tab PRN Q4HRS PRN PO PAIN Last administered on 07/01/21at 11:49; Start 07/01/21 at 11:15 Nitroglycerin/ Dextrose 250 ml @ 1.5 mls/hr CONT PRN IV SEE I/O RECORD; Start 07/01/21 at 12:30 Fentanyl Citrate (Fentanyl 2ml Vial) 25 mcg PRN Q6HRS PRN IVP PAIN; Start 07/01/21 at 12:30 Active Scripts Active Cyclobenzaprine Hcl 10 Mg Tablet 1 Tab PO TID Naproxen 500 Mg Tablet. 1 Tab PO BID Crozier 5-325 Tablet (Acetaminophen/Hydrocodone Bitart) 1 Each Tablet 1-2 Tab PO Q4-6HRS ROS: Review of Systems Review of System Unless noted in HPI 14 point review of systems was negative Physical Exam: Vital Signs: Vital Signs Date Time Temp Pulse Resp B/P (MAP) Pulse Ox O2 Delivery O2 Flow Rate FiO2 07/01/21 11:50 72 111/89 07/01/21 11:49 97 Room Air 07/01/21 11:00 17 07/01/21 08:00 97.5 97.5 07/01/21 06:00 2.0 Physcial Exam: GEN: No apparent distress. Alert and oriented HEENT: Normal cephalic, atraumatic, external auditory canals are patent EYES: Extraocular muscles are intact, pupil are equally round and reactive to light and accommodation MUSCULOSKELETAL: Well developed , well nourished, good range of motion ENDOCRINE: No thyromegaly was palpated LYMPHATICS: No cervical chain or axillary nodes were noted HEMATOPOIETIC: No bruising NECK: Supple, no JVD, no thyromegaly was noted LUNGS: Clear to auscultation in all lung mcdonnell without rhonchi or wheezing HEART: RRR, S1, S2 present. Peripheral pulses intact, no obvious murmurs noted ABDOMEN: Soft, nontender. Positive bowel sounds, no organomegaly, normal bowel sounds EXTREMITIES: Without clubbing, cyanosis, or edema. Pedal pulses intact. Negative Homans sign NEUROLOGIC: Normal speech and tone. A&O x 3, moves all extremities, no obv ious focal deficits PSYCHIATRIC: Normal affect, normal mood. Stable SKIN: No ulcerations or rashes, good skin turgor, no jaundice VASCULAR: Good capillary refill, neurovascular bundle appears to be intact Labs: Labs: Laboratory Tests Test 07/01/21 00:05 07/01/21 00:33 07/01/21 08:45 07/01/21 11:35 White Blood Count 13.2 x10^3/uL (4.0-11.0) Red Blood Count 5.18 x10^6/uL (4.30-5.70) Hemoglobin 16.3 g/dL (13.0-17.5) Hematocrit 47.5 % (39.0-53.0) Mean Corpuscular Volume 92 fL (79-100) Mean Corpuscular Hemoglobin 31 pg (25-35) Mean Corpuscular Hemoglobin Concent 34 g/dL (31-37) Red Cell Distribution Width 14.1 % (11.5-14.5) Platelet Count 369 x10^3/uL (140-400) Neutrophils (%) (Auto) 65 % (31-73) Lymphocytes (%) (Auto) 27 % (24-48) Monocytes (%) (Auto) 7 % (0-9) Eosinophils (%) (Auto) 0 % (0-3) Basophils (%) (Auto) 0 % (0-3) Neutrophils # (Auto) 8.6 x10^3/uL (1.8-7.7) Lymphocytes # (Auto) 3.6 x10^3/uL (1.0-4.8) Monocytes # (Auto) 0.9 x10^3/uL (0.0-1.1) Eosinophils # (Auto) 0.0 x10^3/uL (0.0-0.7) Basophils # (Auto) 0.0 x10^3/uL (0.0-0.2) Prothrombin Time 12.6 SEC (11.7-14.0) Prothromb Time International Ratio 0.9 (0.8-1.1) Activated Partial Thromboplast Time 26 SEC (24-38) Sodium Level 141 mmol/L (136-145) 138 mmol/L (136-145) Potassium Level 3.3 mmol/L (3.5-5.1) 4.7 mmol/L (3.5-5.1) Chloride Level 100 mmol/L (98-107) 103 mmol/L (98-107) Carbon Dioxide Level 23 mmol/L (21-32) 22 mmol/L (21-32) Anion Gap 18 (6-14) 13 (6-14) Blood Urea Nitrogen 14 mg/dL (8-26) 12 mg/dL (8-26) Creatinine 1.3 mg/dL (0.7-1.3) 0.9 mg/dL (0.7-1.3) Estimated GFR (Cockcroft-Gault) 57.3 87.6 BUN/Creatinine Ratio 11 (6-20) Glucose Level 121 mg/dL (70-99) 141 mg/dL (70-99) Calcium Level 8.8 mg/dL (8.5-10.1) 8.5 mg/dL (8.5-10.1) Magnesium Level 2.2 mg/dL (1.8-2.4) 2.3 mg/dL (1.8-2.4) Total Bilirubin 0.4 mg/dL (0.2-1.0) Aspartate Amino Transf (AST/SGOT) 20 U/L (15-37) Alanine Aminotransferase (ALT/SGPT) 44 U/L (16-63) Alkaline Phosphatase 79 U/L (46-116) Troponin I High Sensitivity 20 ng/L (4-75) 034628 ng/L (4-75) RA-Fec-I-Type Natriuretic Peptide 34 pg/mL (0-124) Total Protein 7.9 g/dL (6.4-8.2) Albumin 4.2 g/dL (3.4-5.0) Albumin/Globulin Ratio 1.1 (1.0-1.7) Lipase 151 U/L (73-393) SARS-CoV-2 Antigen (Rapid) Negative (NEGATIVE) Laboratory Tests Test 07/01/21 00:05 07/01/21 00:33 07/01/21 08:45 07/01/21 11:35 White Blood Count 13.2 x10^3/uL (4.0-11.0) Red Blood Count 5.18 x10^6/uL (4.30-5.70) Hemoglobin 16.3 g/dL (13.0-17.5) Hematocrit 47.5 % (39.0-53.0) Mean Corpuscular Volume 92 fL (79-100) Mean Corpuscular Hemoglobin 31 pg (25-35) Mean Corpuscular Hemoglobin Concent 34 g/dL (31-37) Red Cell Distribution Width 14.1 % (11.5-14.5) Platelet Count 369 x10^3/uL (140-400) Neutrophils (%) (Auto) 65 % (31-73) Lymphocytes (%) (Auto) 27 % (24-48) Monocytes (%) (Auto) 7 % (0-9) Eosinophils (%) (Auto) 0 % (0-3) Basophils (%) (Auto) 0 % (0-3) Neutrophils # (Auto) 8.6 x10^3/uL (1.8-7.7) Lymphocytes # (Auto) 3.6 x10^3/uL (1.0-4.8) Monocytes # (Auto) 0.9 x10^3/uL (0.0-1.1) Eosinophils # (Auto) 0.0 x10^3/uL (0.0-0.7) Basophils # (Auto) 0.0 x10^3/uL (0.0-0.2) Prothrombin Time 12.6 SEC (11.7-14.0) Prothromb Time International Ratio 0.9 (0.8-1.1) Activated Partial Thromboplast Time 26 SEC (24-38) Sodium Level 141 mmol/L (136-145) 138 mmol/L (136-145) Potassium Level 3.3 mmol/L (3.5-5.1) 4.7 mmol/L (3.5-5.1) Chloride Level 100 mmol/L (98-107) 103 mmol/L (98-107) Carbon Dioxide Level 23 mmol/L (21-32) 22 mmol/L (21-32) Anion Gap 18 (6-14) 13 (6-14) Blood Urea Nitrogen 14 mg/dL (8-26) 12 mg/dL (8-26) Creatinine 1.3 mg/dL (0.7-1.3) 0.9 mg/dL (0.7-1.3) Estimated GFR (Cockcroft-Gault) 57.3 87.6 BUN/Creatinine Ratio 11 (6-20) Glucose Level 121 mg/dL (70-99) 141 mg/dL (70-99) Calcium Level 8.8 mg/dL (8.5-10.1) 8.5 mg/dL (8.5-10.1) Magnesium Level 2.2 mg/dL (1.8-2.4) 2.3 mg/dL (1.8-2.4) Total Bilirubin 0.4 mg/dL (0.2-1.0) Aspartate Amino Transf (AST/SGOT) 20 U/L (15-37) Alanine Aminotransferase (ALT/SGPT) 44 U/L (16-63) Alkaline Phosphatase 79 U/L (46-116) Troponin I High Sensitivity 20 ng/L (4-75) 398815 ng/L (4-75) LZ-Qnd-W-Type Natriuretic Peptide 34 pg/mL (0-124) Total Protein 7.9 g/dL (6.4-8.2) Albumin 4.2 g/dL (3.4-5.0) Albumin/Globulin Ratio 1.1 (1.0-1.7) Lipase 151 U/L (73-393) SARS-CoV-2 Antigen (Rapid) Negative (NEGATIVE) Assessment/Plan Assessment/Plan Anterior STEMI, history of substance abuse cocaine, alcohol abuse. -Patient presented 1 day history of chest pain found to have anterior TX. Went to [facility] 1 stent placed in LAD -Still complaining of some chest pain not relieved with fentanyl or nitro. Possible GI origin and will start him on Protonix -Start aspirin Plavix tomorrow. Holding off on beta-raphael per cardiology -Cocaine and ethanol positive on arrival. Will consult PET team -DVT prophylaxis -Cardiac diet Justifications for Admission Other Justification PETE ALBERT MD Jul 01, 2021 12:31
[2021-07-01 13:24] LABS: BASO # 0.1 x10^3/uL (0.0-0.2); BASO % 0 % (0-3); EOS % 0 % (0-3); HEMATOCRIT 44.7 % (39.0-53.0); HEMOGLOBIN 15.1 g/dL (13.0-17.5); LYMPH % 16 % (24-48); MEAN CORPUSCULAR HEMOGLOBIN 31 pg (25-35); MEAN CORPUSCULAR HGB CONC 34 g/dL (31-37); MEAN CORPUSCULAR VOLUME 92 fL (79-100); MONO % 8 % (0-9); NEUT # 9.8 x10^3/uL (1.8-7.7); NEUT % 76 % (31-73); PLATELET COUNT 326 x10^3/uL (140-400); RED BLOOD COUNT 4.87 x10^6/uL (4.30-5.70); RED CELL DISTRIBUTION WIDTH 14.2 % (11.5-14.5); WHITE BLOOD COUNT 12.9 x10^3/uL (4.0-11.0)
[2021-07-01] MEDS ORDERED: LIDO:MAALOX 1:1 20 ML SINGLE DOSE. PO PRN (13:45)
[2021-07-01] MEDS ORDERED: CALCIUM CARBONATE 500 MG TAB.CHEW PO PRN (13:45)
--- NOTE | 2021-07-01 13:47 | PDOC2 ---
GI CONSULT Date of Service: DATE: 07/01/21 TIME: 13:34 Reason For Consult: upper GI pain, n/v HPI: HPI: 55 y/o male admitted w/ STEMI s/p cardiac cath/LAD stent. Primarily speaks Finnish but does speak some Macedonian. D/w nurse - c/o epigastric pain - no help w/ Lortab, nitro, or Tums but some i mprovement after stooling. Pt says "it's like heartburn pain" and has some burping/nausea. H/o heartburn - doesn't take anything regularly for this at home. Denies dysphagia, vomiting/hematemesis, diarrhea, constipation, hematochezia, melena, change in appetite, or weight loss. H/o substance abuse - apparently tried drinking 8 beers and taking cocaine for chest pain prior to admission. No previous EGD or colonoscopy. S/p cholecystectomy. Denies liver, pancreas, and PUD history. NSAIDs on summary list from several years ago. PMH: PMH: denies FH: Family History: No pertinent hx (denies GI cancers) Social History: ALCOHOL: heavy Drugs: Cocaine ROS: GEN: Denies fevers, chills, sweats HEENT: Denies blurred vision, sore throat CV: +chest pain RESP: Denies shortness of air, cough GI: Per HPI : Denies hematuria, dysuria ENDO: Denies weight changes NEURO: Denies confusion, dizziness MSK: Denies weakness, joint pain/swelling SKIN: Denies jaundice, pruritus Vitals: Vitals: Vital Signs Date Time Temp Pulse Resp B/P (MAP) Pulse Ox O2 Delivery O2 Flow Rate FiO2 07/01/21 12:30 97 Room Air 07/01/21 11:50 72 111/89 07/01/21 11:00 17 07/01/21 08:00 97.5 97.5 07/01/21 06:00 2.0 Labs: Labs: Laboratory Tests Test 07/01/21 00:05 07/01/21 00:33 07/01/21 08:45 07/01/21 11:35 White Blood Count 13.2 x10^3/uL (4.0-11.0) Red Blood Count 5.18 x10^6/uL (4.30-5.70) Hemoglobin 16.3 g/dL (13.0-17.5) Hematocrit 47.5 % (39.0-53.0) Mean Corpuscular Volume 92 fL (79-100) Mean Corpuscular Hemoglobin 31 pg (25-35) Mean Corpuscular Hemoglobin Concent 34 g/dL (31-37) Red Cell Distribution Width 14.1 % (11.5-14.5) Platelet Count 369 x10^3/uL (140-400) Neutrophils (%) (Auto) 65 % (31-73) Lymphocytes (%) (Auto) 27 % (24-48) Monocytes (%) (Auto) 7 % (0-9) Eosinophils (%) (Auto) 0 % (0-3) Basophils (%) (Auto) 0 % (0-3) Neutrophils # (Auto) 8.6 x10^3/uL (1.8-7.7) Lymphocytes # (Auto) 3.6 x10^3/uL (1.0-4.8) Monocytes # (Auto) 0.9 x10^3/uL (0.0-1.1) Eosinophils # (Auto) 0.0 x10^3/uL (0.0-0.7) Basophils # (Auto) 0.0 x10^3/uL (0.0-0.2) Prothrombin Time 12.6 SEC (11.7-14.0) Prothromb Time International Ratio 0.9 (0.8-1.1) Activated Partial Thromboplast Time 26 SEC (24-38) Sodium Level 141 mmol/L (136-145) 138 mmol/L (136-145) Potassium Level 3.3 mmol/L (3.5-5.1) 4.7 mmol/L (3.5-5.1) Chloride Level 100 mmol/L (98-107) 103 mmol/L (98-107) Carbon Dioxide Level 23 mmol/L (21-32) 22 mmol/L (21-32) Anion Gap 18 (6-14) 13 (6-14) Blood Urea Nitrogen 14 mg/dL (8-26) 12 mg/dL (8-26) Creatinine 1.3 mg/dL (0.7-1.3) 0.9 mg/dL (0.7-1.3) Estimated GFR (Cockcroft-Gault) 57.3 87.6 BUN/Creatinine Ratio 11 (6-20) Glucose Level 121 mg/dL (70-99) 141 mg/dL (70-99) Calcium Level 8.8 mg/dL (8.5-10.1) 8.5 mg/dL (8.5-10.1) Magnesium Level 2.2 mg/dL (1.8-2.4) 2.3 mg/dL (1.8-2.4) Total Bilirubin 0.4 mg/dL (0.2-1.0) Aspartate Amino Transf (AST/SGOT) 20 U/L (15-37) Alanine Aminotransferase (ALT/SGPT) 44 U/L (16-63) Alkaline Phosphatase 79 U/L (46-116) Troponin I High Sensitivity 20 ng/L (4-75) 811352 ng/L (4-75) 997595 ng/L (4-75) CG-Jlq-J-Type Natriuretic Peptide 34 pg/mL (0-124) Total Protein 7.9 g/dL (6.4-8.2) Albumin 4.2 g/dL (3.4-5.0) Albumin/Globulin Ratio 1.1 (1.0-1.7) Lipase 151 U/L (73-393) SARS-CoV-2 Antigen (Rapid) Negative (NEGATIVE) Test 07/01/21 13:10 White Blood Count 12.9 x10^3/uL (4.0-11.0) Red Blood Count 4.87 x10^6/uL (4.30-5.70) Hemoglobin 15.1 g/dL (13.0-17.5) Hematocrit 44.7 % (39.0-53.0) Mean Corpuscular Volume 92 fL (79-100) Mean Corpuscular Hemoglobin 31 pg (25-35) Mean Corpuscular Hemoglobin Concent 34 g/dL (31-37) Red Cell Distribution Width 14.2 % (11.5-14.5) Platelet Count 326 x10^3/uL (140-400) Neutrophils (%) (Auto) 76 % (31-73) Lymphocytes (%) (Auto) 16 % (24-48) Monocytes (%) (Auto) 8 % (0-9) Eosinophils (%) (Auto) 0 % (0-3) Basophils (%) (Auto) 0 % (0-3) Neutrophils # (Auto) 9.8 x10^3/uL (1.8-7.7) Lymphocytes # (Auto) 2.0 x10^3/uL (1.0-4.8) Monocytes # (Auto) 1.0 x10^3/uL (0.0-1.1) Eosinophils # (Auto) 0.0 x10^3/uL (0.0-0.7) Basophils # (Auto) 0.1 x10^3/uL (0.0-0.2) Allergies: Coded Allergies: No Known Drug Allergies (Unverified , 04/25/15) Medications: Current Medications Medications (Trade) Dose Ordered Sig/Ole Route PRN Reason Start Time Stop Time Status Last Admin Dose Admin Aspirin (Aspirin Chewable) 324 mg 1X ONCE PO 07/01/21 00:15 07/01/21 00:16 DC 07/01/21 00:18 Heparin Sodium (Porcine) (Heparin Sodium) 4,000 unit 1X ONCE IV 07/01/21 00:15 07/01/21 00:16 DC 07/01/21 00:21 Potassium Chloride/Water 100 ml @ 50 mls/hr Q2H IV 07/01/21 00:45 07/01/21 04:44 DC 07/01/21 06:18 Heparin Sodium/ Sodium Chloride (HEPARIN for ARTERIAL LINE FLUSH) 1,000 unit 1X ONCE IART 07/01/21 01:15 07/01/21 01:16 DC 07/01/21 01:15 Midazolam HCl (Versed) 2 mg 1X ONCE IV 07/01/21 01:15 07/01/21 01:16 DC 07/01/21 01:15 Fentanyl Citrate (Fentanyl 2ml Vial) 100 mcg 1X ONCE IV 07/01/21 01:15 07/01/21 01:16 DC 07/01/21 01:15 Iodixanol (Visipaque 320) 100 ml 1X ONCE IART 07/01/21 01:15 07/01/21 01:16 DC 07/01/21 01:15 Lidocaine HCl (Lidocaine 1% 20ml Vial) 20 ml 1X ONCE INJ 07/01/21 01:15 07/01/21 01:16 DC 07/01/21 01:15 Amiodarone HCl 450 mg/Dextrose 259 ml @ 33 mls/hr 1X ONCE IV 07/01/21 01:45 07/01/21 09:35 DC 07/01/21 02:50 Bivalirudin (Angiomax) 250 mg 1X ONCE IV 07/01/21 01:45 07/01/21 01:46 DC 07/01/21 01:45 Clopidogrel Bisulfate (Plavix) 600 mg 1X ONCE PO 07/01/21 01:45 07/01/21 01:46 DC 07/01/21 01:45 Ondansetron HCl (Zofran) 4 mg 1X ONCE IVP 07/01/21 01:45 07/01/21 01:46 DC 07/01/21 01:45 Amiodarone HCl (Cordarone) 300 mg 1X ONCE IVP 07/01/21 01:45 07/01/21 01:46 DC 07/01/21 01:45 Dopamine HCl/ Dextrose 250 ml @ 16.875 mls/ hr 1X ONCE IV 07/01/21 01:45 07/01/21 16:33 07/01/21 01:45 Sodium Chloride 1,000 ml @ 60 mls/hr [id number] IV 07/01/21 02:00 07/01/21 11:59 DC 07/01/21 02:59 Fentanyl Citrate (Fentanyl 2ml Vial) 50 mcg PRN Q1HR PRN IV MODERATE OR SEVERE PAIN 07/01/21 02:00 07/01/21 12:19 DC 07/01/21 07:58 Ondansetron HCl (Zofran) 4 mg PRN Q6HRS PRN IVP NAUSEA/VOMITING 07/01/21 02:00 07/01/21 06:44 Nitroglycerin (Nitrostat) 0.4 mg PRN Q5MIN PRN SL CHEST PAIN 07/01/21 02:00 07/01/21 11:50 Calcium Carbonate/ Glycine (Tums) 500 mg PRN AFTMEALHC PRN PO INDIGESTION 07/01/21 10:45 07/01/21 10:50 Acetaminophen/ Hydrocodone Bitart (Lortab 5/325) 1 tab PRN Q4HRS PRN PO PAIN 07/01/21 11:15 07/01/21 11:49 Imaging: Imaging: Brief initial cath note. Mid LAD occlusion. No significant disease in the L main, LCX or RCA. LAD opened with a 3.0 x 18 TRINO. Continue post TN protocol. Full report to follow. CXR 07/01 IMPRESSION: There is no acute cardiopulmonary process. PE: GEN: NAD, bit anxious, burping HEENT: Atraumatic, PERRL LUNGS: CTAB HEART: RRR ABD: NABS, S/ND, mild epigastric discomfort EXTREMITY: No edema SKIN: No rashes, no jaundice NEURO/PSYCH: A & O 3, primarily speaks Finnish, cooperative and communicative in [place]onian however A/P: A/P: STEMI s/p cath/LAD stent Epigastric pain/heartburn, belching CRC screen - none S/p cholecystectomy Substance abuse COVID negative -- Continue per cardiology. Try GI cocktail. Okay to try eating/drinking per GI. Agree w/ PPI for h/o heartburn - change to PO as above. Could consider abdominal imaging if pain persists. Would benefit from outpt EGD and screening colonoscopy. Encouraged less alcohol, no cocaine. WARD LIMON Jul 01, 2021 13:47
[2021-07-01] MEDS: PANTOPRAZOLE IV PUSH 40 MG VIAL. IVP SCH (13:56)
[2021-07-01] MEDS: LISINOPRIL 5 MG TABLET. PO SCH (14:04)
--- NOTE | 2021-07-01 15:58 | CARD ---
MR#: [id number] Date of Study: 07/01/2021 Ordering Physician: HARDEEP GUZMAN, Referring Physician: HARDEEP GUZMAN, Tech: Bernardo Hussein, RT(R)() APPROVED REPORT Procedures Left heart catheterization Selective coronary angiogram Drug-eluting eluding stent placement to the mid LAD The patient is a 55-year-old male who developed chest pain and shortness of breath approximately 1-1/ 2 hours prior to presenting to the emergency room. In the emergency room the patient was evaluated a nd his EKG suggested an anterior ST elevated myocardial infarction. A STEMI protocol was activated. The patient was treated with aspirin and heparin. He has a history of hypertension but denies any h istory of coronary disease or congestive heart failure. He did report drinking alcohol and using genna doc several hours prior to his presentation. Risks and benefits of emergency catheterization and po ssible intervention were discussed with the patient. He agreed to proceed. After informed consent was obtained the patient was brought to the heart catheterization lab. The ar ea the right femoral artery was prepared in the usual manner with Betadine, sterile draping and local anesthetic. An 18-gauge needle was used to enter the right femoral artery, a wire placed and a 6 Fr ench sheath placed over the wire. A 6 Albanian JR4 diagnostic catheter was used to engage the right co ronary system and sequential injections in various views were obtained. A 6 Albanian 3.5 extra-support left guide was used to engage the left coronary system. Sequential injections in various views show ed a mid LAD occlusion. We proceeded to revascularize the vessel. Angiomax as per protocol was administered. A PT choice wire was used to cross the lesion. A 2.75 x 15 Emerge balloon was used for initial 2 dilatations at 8 benoit for 20 seconds. The balloon was remove d and a 3.0 x 18 Resolute Lazaro drug-eluting stent was deployed with 1 inflation at 15 benoit for 15 seco nds. This resolved the lesion and restored good distal flow. The wire and guiding system were remov ed from the patient. A pigtail catheter was advanced the ascending aorta and then the left ventricle . No LV gram was performed secondary to arrhythmias but pressures were obtained and pullback pressur es measured. The catheter was then removed from the patient. Of note all catheter exchanges were ov er a J-wire. Injection the sheath showed normal placement. The sheath was removed and sealed with a n Angio-Seal product. The patient was then moved to the intensive care unit. There were no immediat e complications. Hemodynamics. LV pressure 98/12, 22 with an LVEDP of 22. Aortic root pressure of 96/60. Coronaries. Left main. The left main was a short vessel with no lesions. Left anterior descending. The LAD was a moderately large vessel. It had a mid total occlusion. Left circumflex. The left circumflex was a moderate large vessel. It had diffuse mid 40% lesions. Right coronary artery. The right coronary was a moderate large vessel. Had a minimal proximal disea se of less than 20%. <Conclusion> Mid LAD occlusion. Moderate disease in the left circumflex vessel. Mild disease in the right coronary artery. Successful stent placement to the mid LAD decreasing a total occlusion to 0%. Sedation time of 61 minutes. Dose of 68.8 Gycm2 Fluoroscopy time of 9.0 minutes Contrast of 203 mils of Visipaque All protective devices were used during the procedure. Estimated blood loss of 25 mils The patient was independently monitored throughout the procedure. Signed by : Hardeep Guzman MD Electronically Approved : 07/01/2021 15:58:31
--- NOTE | 2021-07-01 16:14 | NUR ---
SS following for discharge planning. SS reviewed pt chart and discussed with pt RN. Pt is from home with spouse and is currently on room air. COVID19 negative. Cardiology following. Pt had heart cath this morning. Self pay. Med Assist following. SS will continue to follow for discharge planning.
[2021-07-01] MEDS: ATORVASTATIN CALCIUM 20 MG TABLET PO SCH (20:29)
[2021-07-01] MEDS ORDERED: ATORVASTATIN CALCIUM 20 MG TABLET PO SCH (21:00)
[2021-07-02] VITALS (16 sets, daily range): BP systolic 94–125; BP diastolic 64–87
[2021-07-02 06:35] LABS: BASO % 0 % (0-3); EOS # 0.1 x10^3/uL (0.0-0.7); EOS % 1 % (0-3); HEMATOCRIT 42.6 % (39.0-53.0); HEMOGLOBIN 14.1 g/dL (13.0-17.5); LYMPH # 3.2 x10^3/uL (1.0-4.8); LYMPH % 25 % (24-48); MEAN CORPUSCULAR HEMOGLOBIN 30 pg (25-35); MEAN CORPUSCULAR HGB CONC 33 g/dL (31-37); MEAN CORPUSCULAR VOLUME 92 fL (79-100); MONO # 1.2 x10^3/uL (0.0-1.1); MONO % 9 % (0-9); NEUT # 8.3 x10^3/uL (1.8-7.7); NEUT % 65 % (31-73); PLATELET COUNT 268 x10^3/uL (140-400); RED BLOOD COUNT 4.62 x10^6/uL (4.30-5.70); RED CELL DISTRIBUTION WIDTH 14.1 % (11.5-14.5); WHITE BLOOD COUNT 12.8 x10^3/uL (4.0-11.0)
[2021-07-02 06:41] LABS: CALCIUM 8.4 mg/dL (8.5-10.1); CREATININE 0.8 mg/dL (0.7-1.3); GFR 100.4
[2021-07-02 06:44] LABS: CHOLESTEROL/HDL RATIO 3.7
[2021-07-02] MEDS ORDERED: ASPIRIN ENTERIC COATED 325 MG TABLET.DR. PO SCH (08:00)
[2021-07-02] MEDS ORDERED: CLOPIDOGREL BISULFATE 75 MG TABLET PO SCH (08:00)
[2021-07-02] MEDS: ASPIRIN ENTERIC COATED 325 MG TABLET.DR. PO SCH (09:21)
[2021-07-02] MEDS: CLOPIDOGREL BISULFATE 75 MG TABLET PO SCH (09:21)
[2021-07-02] MEDS: LISINOPRIL 5 MG TABLET. PO SCH (09:21)
[2021-07-02] MEDS: PANTOPRAZOLE IV PUSH 40 MG VIAL. IVP SCH (09:21)
--- NOTE | 2021-07-02 10:25 | PDOC ---
Date of Service: DATE: 07/02/21 TIME: 10:20 Subjective: Subjective: Heartburn is better, feels hungry. Objective: Vital Signs: Vital Signs Date Time Temp Pulse Resp B/P (MAP) Pulse Ox O2 Delivery O2 Flow Rate FiO2 07/02/21 10:00 74 22 113/80 (91) 95 Room Air 07/02/21 08:00 98.3 98.3 Labs: Laboratory Tests Test 07/01/21 11:35 07/01/21 13:10 07/02/21 05:30 Sodium Level 138 mmol/L 136 mmol/L Potassium Level 4.7 mmol/L 4.0 mmol/L Chloride Level 103 mmol/L 103 mmol/L Carbon Dioxide Level 22 mmol/L 26 mmol/L Anion Gap 13 7 Blood Urea Nitrogen 12 mg/dL 14 mg/dL Creatinine 0.9 mg/dL 0.8 mg/dL Estimated GFR (Cockcroft-Gault) 87.6 100.4 Glucose Level 141 mg/dL 92 mg/dL Calcium Level 8.5 mg/dL 8.4 mg/dL Magnesium Level 2.3 mg/dL Troponin I High Sensitivity 500339 ng/L White Blood Count 12.9 x10^3/uL 12.8 x10^3/uL Red Blood Count 4.87 x10^6/uL 4.62 x10^6/uL Hemoglobin 15.1 g/dL 14.1 g/dL Hematocrit 44.7 % 42.6 % Mean Corpuscular Volume 92 fL 92 fL Mean Corpuscular Hemoglobin 31 pg 30 pg Mean Corpuscular Hemoglobin Concent 34 g/dL 33 g/dL Red Cell Distribution Width 14.2 % 14.1 % Platelet Count 326 x10^3/uL 268 x10^3/uL Neutrophils (%) (Auto) 76 % 65 % Lymphocytes (%) (Auto) 16 % 25 % Monocytes (%) (Auto) 8 % 9 % Eosinophils (%) (Auto) 0 % 1 % Basophils (%) (Auto) 0 % 0 % Neutrophils # (Auto) 9.8 x10^3/uL 8.3 x10^3/uL Lymphocytes # (Auto) 2.0 x10^3/uL 3.2 x10^3/uL Monocytes # (Auto) 1.0 x10^3/uL 1.2 x10^3/uL Eosinophils # (Auto) 0.0 x10^3/uL 0.1 x10^3/uL Basophils # (Auto) 0.1 x10^3/uL 0.0 x10^3/uL Triglycerides Level 128 mg/dL Cholesterol Level 172 mg/dL LDL Cholesterol, Calculated 99 mg/dL VLDL Cholesterol, Calculated 26 mg/dL Non-HDL Cholesterol Calculated 125 mg/dL HDL Cholesterol 47 mg/dL Cholesterol/HDL Ratio 3.7 PE: GEN: NAD LUNGS: CTAB HEART: RRR ABD: S/ND/NT NEURO/PSYCH: A & O 3 A/P: STEMI s/p stent Heartburn - better Substance abuse -- Continue per cardiology/primary. Would send on PPI when discharged - discussed w/ pt could instead purchase OTC if needed. Outpt 'scopes. Justicifation of Admission Dx: Justifications for Admission: Justification of Admission Dx: Yes WARD LIMON Jul 02, 2021 10:25
--- NOTE | 2021-07-02 12:02 | PDOC ---
CARDIO Progress Notes Date and Time Date of Service 07/02/21 Time of Evaluation 1200 Subjective Subjective: No Chest Pain, No shortness of breath, No Palpitations Vitals Vitals Vital Signs Date Time Temp Pulse Resp B/P (MAP) Pulse Ox O2 Delivery O2 Flow Rate FiO2 07/02/21 11:00 67 23 95/72 (80) 95 Room Air 07/02/21 08:00 98.3 98.3 Weight Weight [ ] Input and Output Intake and Output Intake and Output 07/02/21 07:00 Intake Total 1994 ml Balance 1994 ml Intake Oral 420 ml IV Total 1574 ml # Voids 2 # Bowel Movements 2 Laboratory Labs Laboratory Tests Test 07/01/21 13:10 07/02/21 05:30 White Blood Count 12.9 x10^3/uL (4.0-11.0) 12.8 x10^3/uL (4.0-11.0) Red Blood Count 4.87 x10^6/uL (4.30-5.70) 4.62 x10^6/uL (4.30-5.70) Hemoglobin 15.1 g/dL (13.0-17.5) 14.1 g/dL (13.0-17.5) Hematocrit 44.7 % (39.0-53.0) 42.6 % (39.0-53.0) Mean Corpuscular Volume 92 fL (79-100) 92 fL (79-100) Mean Corpuscular Hemoglobin 31 pg (25-35) 30 pg (25-35) Mean Corpuscular Hemoglobin Concent 34 g/dL (31-37) 33 g/dL (31-37) Red Cell Distribution Width 14.2 % (11.5-14.5) 14.1 % (11.5-14.5) Platelet Count 326 x10^3/uL (140-400) 268 x10^3/uL (140-400) Neutrophils (%) (Auto) 76 % (31-73) 65 % (31-73) Lymphocytes (%) (Auto) 16 % (24-48) 25 % (24-48) Monocytes (%) (Auto) 8 % (0-9) 9 % (0-9) Eosinophils (%) (Auto) 0 % (0-3) 1 % (0-3) Basophils (%) (Auto) 0 % (0-3) 0 % (0-3) Neutrophils # (Auto) 9.8 x10^3/uL (1.8-7.7) 8.3 x10^3/uL (1.8-7.7) Lymphocytes # (Auto) 2.0 x10^3/uL (1.0-4.8) 3.2 x10^3/uL (1.0-4.8) Monocytes # (Auto) 1.0 x10^3/uL (0.0-1.1) 1.2 x10^3/uL (0.0-1.1) Eosinophils # (Auto) 0.0 x10^3/uL (0.0-0.7) 0.1 x10^3/uL (0.0-0.7) Basophils # (Auto) 0.1 x10^3/uL (0.0-0.2) 0.0 x10^3/uL (0.0-0.2) Sodium Level 136 mmol/L (136-145) Potassium Level 4.0 mmol/L (3.5-5.1) Chloride Level 103 mmol/L (98-107) Carbon Dioxide Level 26 mmol/L (21-32) Anion Gap 7 (6-14) Blood Urea Nitrogen 14 mg/dL (8-26) Creatinine 0.8 mg/dL (0.7-1.3) Estimated GFR (Cockcroft-Gault) 100.4 Glucose Level 92 mg/dL (70-99) Calcium Level 8.4 mg/dL (8.5-10.1) Triglycerides Level 128 mg/dL (0-150) Cholesterol Level 172 mg/dL (0-200) LDL Cholesterol, Calculated 99 mg/dL (0-100) VLDL Cholesterol, Calculated 26 mg/dL (0-40) Non-HDL Cholesterol Calculated 125 mg/dL (0-129) HDL Cholesterol 47 mg/dL (40-60) Cholesterol/HDL Ratio 3.7 Physical Exam HEENT: Neck Supple W Full Motion Chest: Symmetric LUNGS: Clear to Auscultation Heart: RRR (Sr/SB) Abdomen: Soft N/T Extremities: No Edema Neurology: alert, oriented, follow commands Assessment Assessment 1. STEMI 2. CAD; s/p PCI/TRINO to the LAD 3. Hypertension; low end 4. Cocaine use; reinforced importance of cessation Recommendations Secondary prevention including DAPT with ASA/Plavix High dose statin therapy Low-dose lisinopril No BB with bradycardia Echocardiogram Risk stratification modification Cardiac rehab referral Justicifation of Admission Dx: Justifications for Admission: Justification of Admission Dx: Yes JOSIE REYNOLDS APRN Jul 02, 2021 12:02
--- NOTE | 2021-07-02 15:02 | NUR ---
SS following up with discharge planning. SS reviewed pt chart and discussed with pt RN. Pt is currently on room air. COVID19 negative. Pt had heart cath on 07/01/2021. Self pay. Med Assist following. Pt transferred to room 656. SS will continue to follow for discharge planning.
--- NOTE | 2021-07-02 15:37 | CARD ---
MR#: [id number] Date of Study: 07/02/2021 Ordering Physician: JOSIE REYNOLDS, Referring Physician: JOSIE REYNOLDS, Tech: Chasity Alberto [facility] APPROVED REPORT EXAM: Two-dimensional and M-mode echocardiogram with Doppler and color Doppler. Other Information Quality : GoodHR: 67bpm Rhythm : NSR INDICATION Non STEMI RISK FACTORS Hypertension Obesity Hyperlipidemia 2D DIMENSIONS Left Atrium(2D)3.6 (1.6-4.0cm)IVSd1.3 (0.7-1.1cm) LVDd4.9 (3.9-5.9cm)LVOT Diameter2.1 (1.8-2.4cm) PWd1.3 (0.7-1.1cm)LVDs3.1 (2.5-4.0cm) FS (%) 36.1 %SV73.7 ml LVEF(%)65.6 (>50%) Aortic Valve AoV Peak Jose.96.1cm/Allison Peak GR.3.7mmHg Mitral Valve MV E Jjxestdb28.6cm/sMV DECEL BBOI237vs MV A Syssqmtf86.6cm/sE/A Ratio0.7 TDI Lateral E' P. V6.61cm/sMedial E' P. V14.01cm/s E/Lateral E'7.4E/Medial E'3.5 LEFT VENTRICLE The left ventricle is normal size. There is borderline to mild concentric left ventricular hypertroph y. Hypokinesis of mid to distal anterior and anteroseptal booker and also the apical wall. The ejectio n fraction is estimated at 35%. Transmitral Doppler flow pattern is Grade I-abnormal relaxation patte rn. RIGHT VENTRICLE The right ventricle is normal size. The right ventricle is mildly hypertrophied. The right ventricula r systolic function is normal. ATRIA The left atrium size is normal. The right atrium size is normal. The interatrial septum is intact wit h no evidence for an atrial septal defect or patent foramen ovale as noted on 2-D or Doppler imaging. AORTIC VALVE The aortic valve is normal in structure and function. Doppler and Color Flow revealed no significant aortic regurgitation. There is no significant aortic valvular stenosis. MITRAL VALVE The mitral valve is normal in structure and function. There is no evidence of mitral valve prolapse. There is no mitral valve stenosis. Doppler and Color-flow revealed mild mitral regurgitation. TRICUSPID VALVE The tricuspid valve is normal in structure and function. Doppler and Color Flow revealed no tricuspid valve regurgitation noted. There is no tricuspid valve stenosis. PULMONIC VALVE The pulmonary valve is normal in structure and function. Doppler and Color Flow revealed no pulmonic valvular regurgitation. GREAT VESSELS The aortic root is normal in size. The ascending aorta is normal in size. The IVC is dilated and olivia apses <50% with inspiration. PERICARDIAL EFFUSION There is no evidence of significant pericardial effusion. Critical Notification Critical Value: No <Conclusion> Hypokinesis of mid to distal anterior and anteroseptal booker and also the apical wall. The ejection fraction is estimated at 35%. Transmitral Doppler flow pattern is Grade I-abnormal relaxation pattern. Mild mitral regurgitation. There is no evidence of significant pericardial effusion. Signed by : Donavan Hudson, Electronically Approved : 07/02/2021 15:36:46
--- NOTE | 2021-07-02 16:00 | NUR ---
Pt arrived via wheelchair from ICU. Pt ambulated to bed. Tele monitor applied. Water pitcher filled. Denied any needs at this time. Call light within reach.
--- NOTE | 2021-07-02 16:09 | PDOC ---
[employer] PROGRESS NOTE Date of Service DOS: DATE: 07/02/21 TIME: 16:07 History of Present Illness History of Present Illness Patient is a 55-year-old male presented to the emergency room overnight due to 1 hour history of chest pain. Described the pain as substernal. He had a used alcohol and cocaine earlier in the day. Denies any sort of heart history. On arrival EKG consistent with anterior NC. Started on heparin drip given high dose aspirin. He was denying that time any sort of headache, dizziness, shortness of breath, abdominal pain, dysuria, joint pain. He was taken emergently to the [facility] and required 1 stent placement in LAD. He is required dopamine drip since the procedure. 07/02 Patient evaluated and examined at bedside. Was denying any sort of chest pain or shortness of breath. Was actually reporting feeling pretty hungry. Nausea vomiting is notably improved. Okay for transfer out of ICU today. Off dopamine drip. Cardiology and GI following. Plan of care discussed with bedside RN. Vitals/I&O Vitals/I&O: Vital Signs Date Time Temp Pulse Resp B/P (MAP) Pulse Ox O2 Delivery O2 Flow Rate FiO2 07/02/21 12:00 98.5 69 15 94/64 (74) Room Air 98.5 07/02/21 11:00 95 I & O 07/01/21 07/01/21 07/02/21 15:00 23:00 07:00 Intake Total 180 ml 1574 ml 240 ml Balance 180 ml 1574 ml 240 ml Physical Exam General: Alert, Oriented X3, Cooperative, No acute distress Heart: Regular rate, Normal S1, Normal S2, Other (regular rhythm) Lungs: Clear Abdomen: Normal bowel sounds Extremities: No edema, Normal pulses Skin: No significant lesion Labs Labs: Laboratory Tests Test 07/02/21 05:30 White Blood Count 12.8 x10^3/uL (4.0-11.0) Red Blood Count 4.62 x10^6/uL (4.30-5.70) Hemoglobin 14.1 g/dL (13.0-17.5) Hematocrit 42.6 % (39.0-53.0) Mean Corpuscular Volume 92 fL (79-100) Mean Corpuscular Hemoglobin 30 pg (25-35) Mean Corpuscular Hemoglobin Concent 33 g/dL (31-37) Red Cell Distribution Width 14.1 % (11.5-14.5) Platelet Count 268 x10^3/uL (140-400) Neutrophils (%) (Auto) 65 % (31-73) Lymphocytes (%) (Auto) 25 % (24-48) Monocytes (%) (Auto) 9 % (0-9) Eosinophils (%) (Auto) 1 % (0-3) Basophils (%) (Auto) 0 % (0-3) Neutrophils # (Auto) 8.3 x10^3/uL (1.8-7.7) Lymphocytes # (Auto) 3.2 x10^3/uL (1.0-4.8) Monocytes # (Auto) 1.2 x10^3/uL (0.0-1.1) Eosinophils # (Auto) 0.1 x10^3/uL (0.0-0.7) Basophils # (Auto) 0.0 x10^3/uL (0.0-0.2) Sodium Level 136 mmol/L (136-145) Potassium Level 4.0 mmol/L (3.5-5.1) Chloride Level 103 mmol/L (98-107) Carbon Dioxide Level 26 mmol/L (21-32) Anion Gap 7 (6-14) Blood Urea Nitrogen 14 mg/dL (8-26) Creatinine 0.8 mg/dL (0.7-1.3) Estimated GFR (Cockcroft-Gault) 100.4 Glucose Level 92 mg/dL (70-99) Calcium Level 8.4 mg/dL (8.5-10.1) Triglycerides Level 128 mg/dL (0-150) Cholesterol Level 172 mg/dL (0-200) LDL Cholesterol, Calculated 99 mg/dL (0-100) VLDL Cholesterol, Calculated 26 mg/dL (0-40) Non-HDL Cholesterol Calculated 125 mg/dL (0-129) HDL Cholesterol 47 mg/dL (40-60) Cholesterol/HDL Ratio 3.7 Assessment and Plan Assessmemt and Plan Problems Medical Problems: (1) STEMI (ST elevation myocardial infarction) Status: Acute Assessment/Plan Anterior STEMI, history of substance abuse cocaine, alcohol abuse. -Patient presented 1 day history of chest pain found to have anterior NC. Went to [facility]ale [facility] 1 stent placed in LAD -Still complaining of some chest pain not relieved with fentanyl or nitro. Possible GI origin and will start him on Protonix -Start aspirin Plavix Holding off on beta-raphael per cardiology -Cocaine and ethanol positive on arrival. Will consult PAT team -DVT prophylaxis -Cardiac diet Comment Review of Relevant I have reviewed the following items karlos (where applicable) has been applied. Medications: Current Medications Medications (Trade) Dose Ordered Sig/Ole Route PRN Reason Start Time Stop Time Status Last Admin Dose Admin Aspirin (Ecotrin) 325 mg DAILYWBKFT PO 07/02/21 08:00 07/02/21 09:21 Clopidogrel Bisulfate (Plavix) 75 mg DAILYWBKFT PO 07/02/21 08:00 07/02/21 09:21 Atorvastatin Calcium (Lipitor) 40 mg QHS PO 07/01/21 21:00 07/01/21 20:29 Justifications for Admission Other Justification PETE ALBERT MD Jul 02, 2021 16:09
[2021-07-02] MEDS: ATORVASTATIN CALCIUM 20 MG TABLET PO SCH (20:25)
[2021-07-02 22:38] LABS: BILIRUBIN,URINE NEGATIVE (NEG); CLARITY,URINE CLEAR; COLOR,URINE YELLOW; NITRITE,URINE NEGATIVE (NEG); PROTEIN,URINE NEGATIVE (NEG-TRACE)
[2021-07-02 22:46] LABS: BACTERIA,URINE 0 /HPF (0-FEW); RBC,URINE RARE /HPF (0-2); WBC,URINE RARE /HPF (0-4)
[2021-07-03 02:35] VITALS: BP 123/84
[2021-07-03 07:00] VITALS: BP 119/72
[2021-07-03] MEDS: PANTOPRAZOLE IV PUSH 40 MG VIAL. IVP SCH (07:43)
[2021-07-03] MEDS: LISINOPRIL 5 MG TABLET. PO SCH (07:44)
[2021-07-03] MEDS: CLOPIDOGREL BISULFATE 75 MG TABLET PO SCH (07:44)
[2021-07-03] MEDS: ASPIRIN ENTERIC COATED 325 MG TABLET.DR. PO SCH (07:44)
--- NOTE | 2021-07-03 10:29 | PDOC ---
Date of Service: DATE: 07/03/21 TIME: 10:26 Objective: Vital Signs: Vital Signs Date Time Temp Pulse Resp B/P (MAP) Pulse Ox O2 Delivery O2 Flow Rate FiO2 07/03/21 08:12 Room Air 07/03/21 07:44 65 123/84 07/03/21 07:00 98.5 18 97 98.5 Imaging: Echo 07/02 <Conclusion> Hypokinesis of mid to distal anterior and anteroseptal booker and also the apical wall. The ejection fraction is estimated at 35%. Transmitral Doppler flow pattern is Grade I-abnormal relaxation pattern. Mild mitral regurgitation. There is no evidence of significant pericardial effusion. PE: in shower when I stopped by A/P: S/p STEMI/stent - echo as above, EF 35% H/o heartburn and substance abuse -- DC per primary/cardiology. 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 Justicifation of Admission Dx: Justifications for Admission: Justification of Admission Dx: Yes WARD LIMON Jul 03, 2021 10:29
--- NOTE | 2021-07-03 10:47 | NUR ---
SS following up with discharge planning. SS reviewed pt chart and discussed with pt RN. Pt is currently on room air. COVID19 negative. Self pay. Med Assist following. Pt provided with Good RX card and $4 medication list for medications. Discharge plan is to home when medically ready for discharge. SS will continue to follow for discharge planning.
[2021-07-03 11:00] VITALS: BP 116/68
[2021-07-03] MEDS ORDERED: NITR0.4T24 SL (11:12)
[2021-07-03] MEDS ORDERED: ASPI325T11 PO (11:12)
[2021-07-03] MEDS ORDERED: OMEP20TA8 PO (11:12)
[2021-07-03] MEDS ORDERED: LISI5TAB15 PO (11:12)
[2021-07-03] MEDS ORDERED: ATOR20TA58 PO (11:12)
[2021-07-03] MEDS ORDERED: CLOP75TA PO (11:13)
[2021-07-03] MEDS ORDERED: PANT40TA77 PO (11:18)
--- NOTE | 2021-07-03 11:18 | DISCH ---
DISCHARGE INSTRUCTIONS Condition on Discharge Condition on Discharge: Stable Activity After Discharge Activity Instructions for Disc: Activity as tolerated Lifting Instructions after Dis: No pulling or pushing Exercise Instruction after Dis: Walk 15 min, 3 x per day Driving Instructions after Dis: Do not drive today Diet after Discharge Diet after Discharge: Cardiac Follow-Up Follow up with: PCP within 2 weeks of discharge Follow Up With: Cardiology as needed JAME YOUNGER MD Jul 03, 2021 11:18
[2021-07-03] MEDS ORDERED: PANTOPRAZOLE 40 MG TABLET.DR. PO SCH (11:30)
--- NOTE | 2021-07-03 11:51 | NUR ---
NURSING PO DOSE OF PANTOPRAZOLE NOT GIVEN AT THIS TIME, PATIENT REC'D IV DOSE THIS AM. AVOIDING DUPLICATIONS.
--- NOTE | 2021-07-03 12:34 | PDOC ---
JOSIE REYNOLDS MARY 07/03/21 1234: CARDIO Progress Notes Date and Time Date of Service 07/03/21 Time of Evaluation 1230 Subjective Subjective: No Chest Pain, No shortness of breath, No Palpitations Vitals Vitals Vital Signs Date Time Temp Pulse Resp B/P (MAP) Pulse Ox O2 Delivery O2 Flow Rate FiO2 07/03/21 11:00 98.7 56 16 116/68 (84) 97 Room Air 98.7 Weight Weight [ ] Input and Output Intake and Output Intake and Output 07/03/21 07:00 Intake Total 960 ml Output Total 200 ml Balance 760 ml Intake Oral 960 ml Output Urine Total 200 ml # Voids 2 Laboratory Labs Laboratory Tests Test 07/02/21 22:20 Urine Collection Type Unknown Urine Color Yellow Urine Clarity Clear Urine pH 6.0 (<5.0-8.0) Urine Specific Hope 1.025 (1.000-1.030) Urine Protein Negative mg/dL (NEG-TRACE) Urine Glucose (UA) Negative mg/dL (NEG) Urine Ketones (Stick) Trace mg/dL (NEG) Urine Blood Trace (NEG) Urine Nitrite Negative (NEG) Urine Bilirubin Negative (NEG) Urine Urobilinogen Dipstick 1.0 mg/dL (0.2 mg/dL) Urine Leukocyte Esterase Negative (NEG) Urine RBC Rare /HPF (0-2) Urine WBC Rare /HPF (0-4) Urine Squamous Epithelial Cells Occ /LPF Urine Bacteria 0 /HPF (0-FEW) Urine Mucus Slight /LPF Physical Exam HEENT: Neck Supple W Full Motion Chest: Symmetric LUNGS: Clear to Auscultation Heart: RRR (SR/SB) Abdomen: Soft N/T Extremities: No Edema Neurology: alert, oriented, follow commands Assessment Assessment 1. STEMI 2. CAD; s/p PCI/TRINO to the LAD 3. Ischemic cardiomyopathy; echo with LVEF 35%. compensated 4. Hypertension; low end 5. Cocaine use; reinforced importance of cessation 6. Sinus bradycardia; lowest upper 40's overnight. No pauses. Mean near 65 Recommendations Secondary prevention including DAPT with ASA/Plavix High dose statin therapy Low-dose lisinopril No BB with bradycardia Risk stratification modification Cardiac rehab referral Reassess LV systolic function on an outpatient basis to assess need for AICD for primary prevention of SCD human services manager consult Follow up in our office with Dr. Schmitz as scheduled Justicifation of Admission Dx: Justifications for Admission: Justification of Admission Dx: Yes HARDEEP SCHMITZ MD 07/03/21 1617: CARDIO Progress Notes Assessment Assessment Patient seen and examined I agree with our nurse practitioners assessment and plan. STEMI. Status post drug-eluting stent to an occluded LAD. The patient looks and feels better today. Continue dual antiplatelet medications with aspirin and Plavix as well as high-dose statin and low-dose lisinopril. Ischemic cardiomyopathy; echo with LVEF 35%. compensated. Hypertension; low end Cocaine use; reinforced importance of cessation. No beta-raphael at this time. Sinus bradycardia; lowest upper 40's overnight. No pauses. Mean near 65 JOSIE REYNOLDS APRN Jul 03, 2021 12:34 HARDEEP SCHMITZ MD Jul 03, 2021 16:17
--- NOTE | 2021-07-03 14:56 | NUR ---
DISCHARGE PIV ET TELE DISCONTINUED, ET PT DRESSED SELT. PT DISCHARGE INFORMATION COVERED WITH PT ET SPOUSE. QUESTIONS REGARDING MEDICATIONS ET FOLLOW UP APPOINTMENTS ANSWERED. $4 RX AND GOOD RX INFORMATION GIVEN TO PT ET . PCT TO WALK PT OUT, HE DECLINES TO USE WHEELCHAIR. WILL TRANSPORT HOME VIA PRIVATE VEHICLE.
--- NOTE | 2021-07-10 19:54 | PDOC3 ---
[facility]-Discharge Summary Date of Admission: Date of Admission: Jul 01, 2021 Date of Discharge: Date of Discharge: Jul 03, 2021 Discharge Diagnosis: Discharge Diagnosis: Anterior STEMI, history of substance abuse cocaine, alcohol abuse. Consults: Consults: cardiology Recommendations Secondary prevention including DAPT with ASA/Plavix High dose statin therapy Low-dose lisinopril No BB with bradycardia Risk stratification modification Cardiac rehab referral Reassess LV systolic function on an outpatient basis to assess need for AICD for primary prevention of SCD security services specialist consult Follow up in our office with Dr. Sol as scheduled Hospital Course: Hospital Course: 55-year-old male presented to the emergency room overnight due to 1 hour history of chest pain. Described the pain as substernal. He had a used alcohol and cocaine earlier in the day. Denies any sort of heart history. On arrival EKG consistent with anterior UT. Started on heparin drip given high dose aspirin. He was denying that time any sort of headache, dizziness, shortness of breath, abdominal pain, dysuria, joint pain. He was taken emergently to the [facility] and required 1 stent placement in LAD. He is required dopamine drip since the procedure. 07/02 Patient evaluated and examined at bedside. Was denying any sort of chest pain or shortness of breath. Was actually reporting feeling pretty hungry. Nausea vomiting is notably improved. Okay for transfer out of ICU today. Off dopamine drip. Cardiology and GI following. Plan of care discussed with bedside RN. By day of discharge, pt was clinically stable and ready for discharge. Rest of hospital course was uneventful Disposition: Disposition/Orders: D/C to Home Activity: Activity: Resume previous activity Diet: Diet: Cardiac Medications: Home Meds Active Scripts Pantoprazole Sodium (PANTOPRAZOLE SODIUM ) 40 Mg Tablet.dr, 40 MG PO DAILYAC for GERD for 30 Days, #30 TAB.SR 2 Refills Prov:JAME YOUNGER MD 07/03/21 Clopidogrel Bisulfate (CLOPIDOGREL) 75 Mg Tablet, 75 MG PO DAILY for 2 for 30 Days, #30 TAB Prov:JAME YOUNGER MD 07/03/21 Nitroglycerin (NITROSTAT) 0.4 Mg Tab.subl, 0.4 MG SL PRN Q5MIN PRN for CHEST PAIN for 30 Days, #30 TAB 2 Refills Prov:JAME YOUNGER MD 07/03/21 Lisinopril (LISINOPRIL) 5 Mg Tablet, 5 MG PO DAILY for blood pressure for 30 Days, #30 TAB Prov:JAME YOUNGER MD 07/03/21 Aspirin (ASPIRIN EC) 325 Mg Tablet.dr, 325 MG PO DAILYWBKFT for heart disease for 30 Days, #30 TAB.SR 2 Refills Prov:JAME YOUNGER MD 07/03/21 Atorvastatin Calcium (ATORVASTATIN CALCIUM) 20 Mg Tablet, 40 MG PO QHS for cholesterol for 30 Days, #60 TAB 2 Refills Prov:JAME YOUNGER MD 07/03/21 Hydrocodone/Apap 5-325 (NORCO 5-325 TABLET) 1 Each Tablet, 1-2 TAB PO Q4-6HRS, #10 TAB Prov:BARAK SHETTY AEROSPACE STRESS ENGINEER 11/04/16 Discontinued Scripts Cyclobenzaprine Hcl (CYCLOBENZAPRINE HCL) 10 Mg Tablet, 1 TAB PO TID, #30 TAB Prov:BARAK SHETTY AEROSPACE STRESS ENGINEER 11/04/16 Naproxen (NAPROXEN) 500 Mg Tablet.dr, 1 TAB PO BID, #60 TAB 2 Refills Prov:BARAK SHETTY AEROSPACE STRESS ENGINEER 11/04/16 Scheduled Aspirin (Aspirin Ec), 325 MG PO DAILYWBKFT Atorvastatin Calcium (Atorvastatin Calcium), 40 MG PO QHS Clopidogrel Bisulfate (Clopidogrel), 75 MG PO DAILY Hydrocodone/Apap 5-325 ([place] 5-325 Tablet), 1-2 TAB PO Q4-6HRS Lisinopril (Lisinopril), 5 MG PO DAILY Pantoprazole Sodium (Pantoprazole Sodium ), 40 MG PO DAILYAC Scheduled PRN Nitroglycerin (Nitrostat), 0.4 MG SL PRN Q5MIN PRN for CHEST PAIN Discontinued Medications Cyclobenzaprine Hcl (Cyclobenzaprine Hcl), 1 TAB PO TID Naproxen (Naproxen), 1 TAB PO BID Total Time: Total Time: Total time spent was 34 minutes in preparing scripts, discharge planning with SW and RN, and preparing this discharge summary. Patient seen and examined on day of discharge. Justicifation of Admission Dx: Justifications for Admission: Justification of Admission Dx: Yes JAME YOUNGER MD Jul 10, 2021 19:54
== END 2021-07-03 14:56 | disposition home or self-care (01) | DRG 247 ==
LOC: ER 23:50 → ED HOLD 07-01 01:00 → 1 WEST ICU 07-01 02:46 → 6 SOUTH 07-02 14:26
PROVIDERS: ADMIT Internal Medicine; ATTEND Internal Medicine
PROC: 4A023N7 Measurement of Cardiac Sampling and Pressure, Left Heart, Percutaneous Approach (ICD-10-PCS; principal; 2021-07-01)
PROC: 027034Z Dilation of Coronary Artery, One Artery with Drug-eluting Intraluminal Device, Percutaneous Approach (ICD-10-PCS; 2021-07-01)
PROC: B211YZZ Fluoroscopy of Multiple Coronary Arteries using Other Contrast (ICD-10-PCS; 2021-07-01)
DX: I21.09 ST elevation (STEMI) myocardial infarction involving other coronary artery of anterior wall (principal); I10 Essential (primary) hypertension; I25.10 Atherosclerotic heart disease of native coronary artery without angina pectoris; I25.2 Old myocardial infarction; I25.5 Ischemic cardiomyopathy; Z82.49 Family history of ischemic heart disease and other diseases of the circulatory system; Z87.442 Personal history of urinary calculi; Z90.49 Acquired absence of other specified parts of digestive tract; F10.10 Alcohol abuse, uncomplicated; F14.10 Cocaine abuse, uncomplicated; K21.9 Gastro-esophageal reflux disease without esophagitis; F17.210 Nicotine dependence, cigarettes, uncomplicated; R00.1 Bradycardia, unspecified
CPT/HCPCS: 92941; 93458; 96374; 96375; 99285; G0269; 36415; 71045; 80048; 80053; 80061; 81001; 83690; 83735; 83880; 84484; 85025; 85610; 85730; 87426; 93005; 93306; 99152; 99153; C1874; C1894; C9113; J0282; J0583; J1265; J1644; J2250; J2405; J3010; J3480; J3490; J7030; J7060; Q9967; U0003; U0005; C1725; G0378

== ENCOUNTER 2021-07-05 13:38 | Observation (INO) | payer SELFPAY ==
[~2021-07-05] VITALS: Ht 160 cm; Wt 81.4 kg
[~2021-07-05 13:38] MED LIST changes: +ASPI325T11 PO; +ATOR20TA58 PO; +CLOP75TA PO; +LISI5TAB15 PO; +NITR0.4T24 SL; +OMEP20TA8 PO; +PANT40TA77 PO
[2021-07-05 14:32] LABS: BASO # 0.1 x10^3/uL (0.0-0.2); BASO % 1 % (0-3); EOS # 0.1 x10^3/uL (0.0-0.7); EOS % 1 % (0-3); HEMATOCRIT 43.1 % (39.0-53.0); HEMOGLOBIN 14.9 g/dL (13.0-17.5); LYMPH # 2.7 x10^3/uL (1.0-4.8); LYMPH % 29 % (24-48); MEAN CORPUSCULAR HEMOGLOBIN 32 pg (25-35); MEAN CORPUSCULAR HGB CONC 35 g/dL (31-37); MEAN CORPUSCULAR VOLUME 91 fL (79-100); MONO # 0.8 x10^3/uL (0.0-1.1); MONO % 9 % (0-9); NEUT # 5.5 x10^3/uL (1.8-7.7); NEUT % 60 % (31-73); PLATELET COUNT 290 x10^3/uL (140-400); RED BLOOD COUNT 4.74 x10^6/uL (4.30-5.70); RED CELL DISTRIBUTION WIDTH 14.1 % (11.5-14.5); WHITE BLOOD COUNT 9.1 x10^3/uL (4.0-11.0)
[2021-07-05 14:42] LABS: PROTHROMBIN TIME PATIENT 12.8 SEC (11.7-14.0)
[2021-07-05 14:45] LABS: CALCIUM 9.1 mg/dL (8.5-10.1); GFR 77.6; POTASSIUM 3.7 mmol/L (3.5-5.1)
--- NOTE | 2021-07-05 14:48 | RAD ---
Single AP view of the chest. Comparison: 07/01/2021. Indication: Chest pain Findings: The heart is enlarged but stable. There is no pneumothorax or effusion. No air space or interstitial disease. Impression: 1. No acute cardiopulmonary process. Electronically signed by: Johnson Trammell MD (07/05/2021 2:46 PM) [facility]
[2021-07-05 14:52] LABS: ALBUMIN 3.9 g/dL (3.4-5.0); MAGNESIUM 2.1 mg/dL (1.8-2.4); TOTAL BILIRUBIN 0.8 mg/dL (0.2-1.0)
[2021-07-05] MEDS ORDERED: FAMOTIDINE 20 MG/2 ML VIAL IVP ONE (15:00)
--- NOTE | 2021-07-05 15:26 | PHYS DOC ---
Past Medical History Past Medical History: Kidney Stone (MARACAITLIN OVERNIGHT BABYSITTER) Past Surgical History: No Surgical History Additional Past Surgical Histo: KIDNEY STONES (KONGCAITLIN OVERNIGHT BABYSITTER) Smoking Status: Current Every Day Smoker Alcohol Use: Heavy Drug Use: None (CAITLIN TRIANA APRN) General Adult EDM: Chief Complaint: WEAKNESS/GENERALIZED HPI: HPI: Patient is a 55 year old male who presents with went out for a 40-minute walk in the neighborhood today after having a STEMI on July 01 and was discharged 2 days ago. Patient came home and was having epigastric heaviness and shortness of breath and became very weak and could not even eat. Patient has not started on any medications that they prescribed for him such as high cholesterol medication, hypertension medication, aspirin or blood thinner medication. states they cannot afford it and they are be going to be able to pick it up today after 1600. Patient states he does not have any chest heaviness. He denies nausea, vomiting, diarrhea, fever, cough, syncope, dizziness, headache, focal weakness or numbness and tingling. (CAITLIN TRIANA OVERNIGHT BABYSITTER) Review of Systems: Review of Systems: Constitutional: Denies fever or chills. [] Eyes: Denies change in visual acuity. [] HENT: Denies nasal congestion or sore throat. [] Respiratory: Denies cough or +shortness of breath. [] Cardiovascular: Denies chest pain or edema. [] GI: + Epigastric abdominal pain, denies nausea, vomiting, bloody stools or diarrhea. [] : Denies dysuria. [] Musculoskeletal: Denies back pain or joint pain. + Generalized weakness [] Integument: Denies rash. [] Neurologic: Denies headache, focal weakness or sensory changes. [] Endocrine: Denies polyuria or polydipsia. [] Lymphatic: Denies swollen glands. [] Psychiatric: Denies depression or anxiety. [] (CAITLIN TRIANA OVERNIGHT BABYSITTER) Heart Score: C/O Chest Pain: No HEART Score for Chest Pain: HEART Score for Chest Pain Response (Comments) Value History Slighlty/Non-Suspicious 0 ECG Nonspecific Repolarizatio 1 Age >45 - < 65 1 Risk Factors >3 Risk Factors or Hx CAD 2 Troponin < Normal Limit 0 Total 4 Risk Factors: Risk Factors: DM, Current or recent (<one month) smoker, HTN, HLP, family history of CAD, obesity. Risk Scores: Score 0 - 3: 2.5% MACE over next 6 weeks - Discharge Home Score 4 - 6: 20.3% MACE over next 6 weeks - Admit for Clinical Observation Score 7 - 10: 72.7% MACE over next 6 weeks - Early Invasive Strategies ([facility] Current Medications: Current Medications Medications (Trade) Dose Ordered Sig/Ole Start Time Stop Time Status Last Admin Dose Admin Famotidine (Pepcid Vial) 20 mg 1X ONCE 07/05/21 15:00 07/05/21 15:01 DC ([facility]) Allergies: Allergies: Allergies Coded Allergies Type Severity Reaction Last Updated Verified No Known Drug Allergies 04/25/15 No ([facility]) Physical Exam: PE: Constitutional: Well developed, well nourished, no acute distress, non-toxic appearance. [] HENT: Normocephalic, atraumatic, bilateral external ears normal, oropharynx moist, no oral exudates, nose normal. [] Eyes: PERRLA, EOMI, conjunctiva normal, no discharge. [] Neck: Normal range of motion, no tenderness, supple, no stridor. [] Cardiovascular:Heart rate regular rhythm, no murmur [] Lungs & Thorax: Bilateral breath sounds clear to auscultation [] Abdomen: Bowel sounds normal, soft, no tenderness, no masses, no pulsatile masses. [] Skin: Warm, dry, no erythema, no rash. [] Back: No tenderness, no CVA tenderness. [] Extremities: No tenderness, no cyanosis, no clubbing, ROM intact, no edema. [] Neurologic: Alert and oriented X 3, normal motor function, normal sensory function, no focal deficits noted. [] Psychologic: Affect normal, judgement normal, mood normal. [] Normal physical exam ([facility]) Current Patient Data: Labs: Laboratory Tests Test 07/05/21 14:20 White Blood Count 9.1 x10^3/uL (4.0-11.0) Red Blood Count 4.74 x10^6/uL (4.30-5.70) Hemoglobin 14.9 g/dL (13.0-17.5) Hematocrit 43.1 % (39.0-53.0) Mean Corpuscular Volume 91 fL (79-100) Mean Corpuscular Hemoglobin 32 pg (25-35) Mean Corpuscular Hemoglobin Concent 35 g/dL (31-37) Red Cell Distribution Width 14.1 % (11.5-14.5) Platelet Count 290 x10^3/uL (140-400) Neutrophils (%) (Auto) 60 % (31-73) Lymphocytes (%) (Auto) 29 % (24-48) Monocytes (%) (Auto) 9 % (0-9) Eosinophils (%) (Auto) 1 % (0-3) Basophils (%) (Auto) 1 % (0-3) Neutrophils # (Auto) 5.5 x10^3/uL (1.8-7.7) Lymphocytes # (Auto) 2.7 x10^3/uL (1.0-4.8) Monocytes # (Auto) 0.8 x10^3/uL (0.0-1.1) Eosinophils # (Auto) 0.1 x10^3/uL (0.0-0.7) Basophils # (Auto) 0.1 x10^3/uL (0.0-0.2) Prothrombin Time 12.8 SEC (11.7-14.0) Prothrombin Time INR 1.0 (0.8-1.1) Sodium Level 141 mmol/L (136-145) Potassium Level 3.7 mmol/L (3.5-5.1) Chloride Level 104 mmol/L (98-107) Carbon Dioxide Level 27 mmol/L (21-32) Anion Gap 10 (6-14) Blood Urea Nitrogen 13 mg/dL (8-26) Creatinine 1.0 mg/dL (0.7-1.3) Estimated GFR (Cockcroft-Gault) 77.6 BUN/Creatinine Ratio 13 (6-20) Glucose Level 99 mg/dL (70-99) Calcium Level 9.1 mg/dL (8.5-10.1) Magnesium Level 2.1 mg/dL (1.8-2.4) Total Bilirubin 0.8 mg/dL (0.2-1.0) Aspartate Amino Transferase (AST) 50 U/L (15-37) H Alanine Aminotransferase (ALT) 73 U/L (16-63) H Alkaline Phosphatase 96 U/L (46-116) Troponin I High Sensitivity 7849 ng/L (4-75) H TA-Kkf-L-Type Natriuretic Peptide 1124 pg/mL (0-124) H Total Protein 8.0 g/dL (6.4-8.2) Albumin 3.9 g/dL (3.4-5.0) Albumin/Globulin Ratio 1.0 (1.0-1.7) Lipase 112 U/L (73-393) Laboratory Tests 07/05/21 14:20 Laboratory Tests 07/05/21 14:20 Vital Signs: Vital Signs Date Time Temp Pulse Resp B/P (MAP) Pulse Ox O2 Delivery O2 Flow Rate FiO2 07/05/21 14:12 98.2 68 16 141/91 (108) 99 Room Air 98.2 (CAITLIN TRIANA APRN) EKG: EK read by Dr. Casarez is sinus rhythm but no STEMI. (CAITLIN TRIANA APRN) Radiology/Procedures: Radiology/Procedures: [] Impression: [facility] [address] [place] [address] IMAGING REPORT Signed PATIENT: JOSSELINE DAI ACCOUNT: [id number] : 1965 LOCATION: ER AGE: 55 SEX: M EXAM STATUS: PRE ER ORD. PHYSICIAN: CAITLIN TRIANA APRN REASON: chest pain PROCEDURE: PORTABLE CHEST 1V Single AP view of the chest. Comparison: 07/01/2021. Indication: Chest pain Findings: The heart is enlarged but stable. There is no pneumothorax or effusion. No air space or interstitial disease. Impression: 1. No acute cardiopulmonary process. Electronically signed by: Johnson Trammell MD (07/05/2021 2:46 PM) [facility] DICTATED and SIGNED BY: JOHNSON TRAMMELL MD DATE: 07/05/21 [id number] (CAITLIN TRIANA APRN) Course & Med Decision Making: Course & Med Decision Making Pertinent Labs and Imaging studies reviewed. (See chart for details) See HPI. Alert and oriented x4. Ambulatory steady gait. Speaks in full clear sentences. Skin pink warm and dry. The pain is not reproducible. No extremity edema at this time. Lungs are clear all station all lobes. Vital signs are within normal limits. Troponins have trended down nicely. Did give the patient a 325 mg aspirin. 1556: I spoke to [facility] nurse practitioner for cardiology and he states to have the patient stay overnight for observation. He is in speaking with the patient at this time. Patient admitted to Dr. Winn. [] (CAITLIN TRIANA APRN) Course & Med Decision Making I have participated in the care of this patient and I have reviewed and agree with all pertinent clinical information above including history, exam, and recommendations. Chela Casarez DO (CHELA CASAREZ DO) Kimmie Disclaimer: Kimmie Disclaimer: This electronic medical record was generated, in whole or in part, using a voice recognition dictation system. (CAITLIN TRIANA APRN) Departure Departure Impression: Primary Impression: Chest pain Qualified Codes: R07.9 - Chest pain, unspecified Disposition: 09 ADMITTED INPATIENT Admitting Physician: LANIE (CAITLIN TRIANA APRN) Condition: STABLE Referrals: NO PCP (PCP) CAITLIN TRIANA APRN Jul 05, 2021 15:26 CHELA CASAREZ DO Jul 06, 2021 06:09
[2021-07-05] MEDS ORDERED: ASPIRIN 325 MG TABLET PO ONE (15:30)
--- NOTE | 2021-07-05 16:06 | PDOC ---
MIKAELA LUI TELEVISION OPERATOR 07/05/21 1606: CARDIO Progress Notes Date and Time Date of Service 07/05/2021 Time of Evaluation 1540 Subjective Subjective: No Chest Pain, No shortness of breath, No Palpitations Vitals Vitals Vital Signs Date Time Temp Pulse Resp B/P (MAP) Pulse Ox O2 Delivery O2 Flow Rate FiO2 07/05/21 15:30 57 16 117/81 (93) 98 Room Air 07/05/21 14:12 98.2 98.2 Weight Weight [ ] Laboratory Labs Laboratory Tests Test 07/05/21 14:20 White Blood Count 9.1 x10^3/uL (4.0-11.0) Red Blood Count 4.74 x10^6/uL (4.30-5.70) Hemoglobin 14.9 g/dL (13.0-17.5) Hematocrit 43.1 % (39.0-53.0) Mean Corpuscular Volume 91 fL (79-100) Mean Corpuscular Hemoglobin 32 pg (25-35) Mean Corpuscular Hemoglobin Concent 35 g/dL (31-37) Red Cell Distribution Width 14.1 % (11.5-14.5) Platelet Count 290 x10^3/uL (140-400) Neutrophils (%) (Auto) 60 % (31-73) Lymphocytes (%) (Auto) 29 % (24-48) Monocytes (%) (Auto) 9 % (0-9) Eosinophils (%) (Auto) 1 % (0-3) Basophils (%) (Auto) 1 % (0-3) Neutrophils # (Auto) 5.5 x10^3/uL (1.8-7.7) Lymphocytes # (Auto) 2.7 x10^3/uL (1.0-4.8) Monocytes # (Auto) 0.8 x10^3/uL (0.0-1.1) Eosinophils # (Auto) 0.1 x10^3/uL (0.0-0.7) Basophils # (Auto) 0.1 x10^3/uL (0.0-0.2) Prothrombin Time 12.8 SEC (11.7-14.0) Prothromb Time International Ratio 1.0 (0.8-1.1) Sodium Level 141 mmol/L (136-145) Potassium Level 3.7 mmol/L (3.5-5.1) Chloride Level 104 mmol/L (98-107) Carbon Dioxide Level 27 mmol/L (21-32) Anion Gap 10 (6-14) Blood Urea Nitrogen 13 mg/dL (8-26) Creatinine 1.0 mg/dL (0.7-1.3) Estimated GFR (Cockcroft-Gault) 77.6 BUN/Creatinine Ratio 13 (6-20) Glucose Level 99 mg/dL (70-99) Calcium Level 9.1 mg/dL (8.5-10.1) Magnesium Level 2.1 mg/dL (1.8-2.4) Total Bilirubin 0.8 mg/dL (0.2-1.0) Aspartate Amino Transf (AST/SGOT) 50 U/L (15-37) Alanine Aminotransferase (ALT/SGPT) 73 U/L (16-63) Alkaline Phosphatase 96 U/L (46-116) Troponin I High Sensitivity 7849 ng/L (4-75) TE-Lem-Y-Type Natriuretic Peptide 1124 pg/mL (0-124) Total Protein 8.0 g/dL (6.4-8.2) Albumin 3.9 g/dL (3.4-5.0) Albumin/Globulin Ratio 1.0 (1.0-1.7) Lipase 112 U/L (73-393) Physical Exam HEENT: Neck Supple W Full Motion Chest: Symmetric LUNGS: Clear to Auscultation Heart: S1S2, RRR (SR) Abdomen: Soft N/T Extremities: No Edema, No Calf Tenderness Neurology: alert, oriented, follow commands Assessment Assessment HPI: This is a 55 yo male admitted for complains of weakness and SOA. and also epigastric discomfort but no chest heaviness. He was walking around and just felt some SOA. No nausea, vomiting and no diaphoresis. Denies cocaine use. He recently was DC on 07/03/2021 and had PCI/TRINO to his LAD with also associated cocaine abuse. 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 It appears that he did not fill his prescriptions citing they could not afford it. Discussed treatment compliance with pt and spouse. 1. Atypical CP: more on epigastric region which is now resolved. No acute EKG changes 2. Recent STEMI: trop was 449509 and has trended down to 7849 3. CAD; s/p PCI/TRINO to the LAD on 07/01/2021 4. Ischemic cardiomyopathy; echo with LVEF 35%. appears compensated 5. Hypertension; controlled 6. Cocaine use; reinforced importance of cessation Recommendations Secondary prevention including DAPT with ASA/Plavix. Obtain UDS High dose statin therapy Low-dose lisinopril, Lasix PRN No BB with bradycardia Risk stratification modification Cardiac rehab referral Reassess LV systolic function on an outpatient basis to assess need for AICD for primary prevention of SCD travel services professional consult Follow up in our office with Dr. Schmitz as scheduled Anticipate DC tomorrow. Resume PPI. Justicifation of Admission Dx: Justifications for Admission: Justification of Admission Dx: Yes HARDEEP SCHMITZ MD 07/05/21 1630: CARDIO Progress Notes Assessment Assessment Patient seen and examined The patient is now comfortable and chest pain-free. Agree with our nurse practitioners assessment and plan. Atypical CP: more on epigastric region which is now resolved. No acute EKG changes Recent STEMI: trop was [id number] and has trended down to 7849 CAD; s/p PCI/TRINO to an occluded mid LAD on 07/01/2021. The patient has apparently not been taking his medications. Discussion as above. Will give extra Plavix today. Ischemic cardiomyopathy; echo with LVEF 35%. appears compensated Hypertension; controlled Cocaine use; reinforced importance of cessation MIKAELA LUI APRN Jul 05, 2021 16:06 HARDEEP SCHMITZ MD Jul 05, 2021 16:30
[2021-07-05] MEDS: PANTOPRAZOLE 40 MG TABLET.DR. PO SCH (16:19)
[2021-07-05] MEDS: CLOPIDOGREL BISULFATE 75 MG TABLET PO SCH (16:19)
[2021-07-05] MEDS ORDERED: CLOPIDOGREL BISULFATE 75 MG TABLET PO ONE (16:45)
[2021-07-05 17:16] LABS: BILIRUBIN,URINE NEGATIVE (NEG); CLARITY,URINE CLEAR; COLOR,URINE AMBER; NITRITE,URINE NEGATIVE (NEG); PH,URINE 5.5 (<5.0-8.0); PROTEIN,URINE NEGATIVE (NEG-TRACE)
[2021-07-05 17:20] LABS: BACTERIA,URINE 0 /HPF (0-FEW)
[2021-07-05 17:38] LABS: BARBITURATES NEG (NEG); BENZODIAZEPINES NEG (NEG); CANNABINOIDS POS (NEG); COCAINE POS (NEG); METHADONE NEG (NEG); OPIATES NEG (NEG); PHENCYCLIDINE NEG (NEG)
[2021-07-05 17:40] LABS: AMPHETAMINE/METHAMPHETAMINE NEG (NEG)
--- NOTE | 2021-07-05 18:01 | PDOC1 ---
History and Physical Date of Service: DOS: DATE: 07/05/21 TIME: 18:00 Chief Complaint: Problems: (1) Weakness Chief Complain: Fatigue, weakness History of Present Illness: HPI: Patient is a 55 year old male who presents with went out for a 40-minute walk in the neighborhood today after having a STEMI on July 01 and was discharged 2 days ago. Patient came home and was having epigastric heaviness and shortness of breath and became very weak and could not even eat. Patient has not started on any medications that they prescribed for him such as high cholesterol medication, hypertension medication, aspirin or blood thinner medication. states they cannot afford it and they are be going to be able to pick it up today after 1600. Patient states he does not have any chest heaviness. He denies nausea, vomiting, diarrhea, fever, cough, syncope, dizziness, headache, focal weakness or numbness and tingling Past Medical/Surgical History: PMH/PSH: Kidney Stones, Stemi Allergies: Allergies: Coded Allergies: No Known Drug Allergies (Unverified , 04/25/15) Family History: Family History: HTN Social History: Social History: daily tobacco; daily alcohol? no drug use Current Medications: Current Medications Current Medications Famotidine (Pepcid Vial) 20 mg 1X ONCE IVP Last administered on 07/05/21at 15:27; Start 07/05/21 at 15:00; Stop 07/05/21 at 15:01; Status DC Aspirin (Lui Aspirin) 325 mg 1X ONCE PO Last administered on 07/05/21at 15: 27; Start 07/05/21 at 15:30; Stop 07/05/21 at 15:31; Status DC Aspirin (Ecotrin) 325 mg DAILYWBKFT PO ; Start 07/06/21 at 08:00 Atorvastatin Calcium (Lipitor) 40 mg QHS PO ; Start 07/05/21 at 21:00 Clopidogrel Bisulfate (Plavix) 75 mg DAILY PO Last administered on 07/05/21at 16:19; Start 07/05/21 at 16:00 Lisinopril (Prinivil) 5 mg DAILY PO ; Start 07/06/21 at 09:00 Pantoprazole Sodium (Protonix) 40 mg DAILYAC PO Last administered on 07/05/21at 16:19; Start 07/05/21 at 16:00 Clopidogrel Bisulfate (Plavix) 225 mg 1X ONCE PO ; Start 07/05/21 at 16:45; Stop 07/05/21 at 16:46; Status DC Active Scripts Active Pantoprazole Sodium (Pantoprazole Sodium) 40 Mg Tablet. 40 Mg PO DAILYAC 30 Days Clopidogrel (Clopidogrel Bisulfate) 75 Mg Tablet 75 Mg PO DAILY 30 Days Nitrostat (Nitroglycerin) 0.4 Mg Tab.subl 0.4 Mg SL PRN Q5MIN PRN 30 Days Lisinopril 5 Mg Tablet 5 Mg PO DAILY 30 Days Aspirin Ec (Aspirin) 325 Mg Tablet. 325 Mg PO DAILYWBKFT 30 Days Atorvastatin Calcium 20 Mg Tablet 40 Mg PO QHS 30 Days [place] 5-325 Tablet (Acetaminophen/Hydrocodone Bitart) 1 Each Tablet 1-2 Tab PO Q4-6HRS ROS: Review of Systems Review of System Unless noted in HPI a 14pt review of systems was negative Physical Exam: Vital Signs: Vital Signs Date Time Temp Pulse Resp B/P (MAP) Pulse Ox O2 Delivery O2 Flow Rate FiO2 07/05/21 16:20 58 16 121/82 (95) 99 Room Air 07/05/21 14:12 98.2 98.2 Physcial Exam: GEN: Lethargic HEENT: Normal cephalic, atraumatic, external auditory canals are patent EYES: Extraocular muscles are intact, pupil are equally round and reactive to light and accommodation MUSCULOSKELETAL: Well developed , well nourished, good range of motion ENDOCRINE: No thyromegaly was palpated LYMPHATICS: No cervical chain or axillary nodes were noted HEMATOPOIETIC: No bruising NECK: Supple, no JVD, no thyromegaly was noted LUNGS: Clear to auscultation in all lung mcdonnell without rhonchi or wheezing HEART: RRR, S1, S2 present. Peripheral pulses intact, no obvious murmurs noted ABDOMEN: Soft, nontender. Positive bowel sounds, no organomegaly, normal bowel sounds EXTREMITIES: Without clubbing, cyanosis, or edema. Pedal pulses intact. NEUROLOGIC: Normal speech and tone. A&O x 3, moves all extremities, no obvious focal deficits PSYCHIATRIC: Normal affect, normal mood. Stable SKIN: No ulcerations or rashes, good skin turgor, no jaundice VASCULAR: Good capillary refill, neurovascular bundle appears to be intact Labs: Labs: Laboratory Tests Test 07/05/21 14:20 07/05/21 17:05 White Blood Count 9.1 x10^3/uL (4.0-11.0) Red Blood Count 4.74 x10^6/uL (4.30-5.70) Hemoglobin 14.9 g/dL (13.0-17.5) Hematocrit 43.1 % (39.0-53.0) Mean Corpuscular Volume 91 fL (79-100) Mean Corpuscular Hemoglobin 32 pg (25-35) Mean Corpuscular Hemoglobin Concent 35 g/dL (31-37) Red Cell Distribution Width 14.1 % (11.5-14.5) Platelet Count 290 x10^3/uL (140-400) Neutrophils (%) (Auto) 60 % (31-73) Lymphocytes (%) (Auto) 29 % (24-48) Monocytes (%) (Auto) 9 % (0-9) Eosinophils (%) (Auto) 1 % (0-3) Basophils (%) (Auto) 1 % (0-3) Neutrophils # (Auto) 5.5 x10^3/uL (1.8-7.7) Lymphocytes # (Auto) 2.7 x10^3/uL (1.0-4.8) Monocytes # (Auto) 0.8 x10^3/uL (0.0-1.1) Eosinophils # (Auto) 0.1 x10^3/uL (0.0-0.7) Basophils # (Auto) 0.1 x10^3/uL (0.0-0.2) Prothrombin Time 12.8 SEC (11.7-14.0) Prothromb Time International Ratio 1.0 (0.8-1.1) Sodium Level 141 mmol/L (136-145) Potassium Level 3.7 mmol/L (3.5-5.1) Chloride Level 104 mmol/L (98-107) Carbon Dioxide Level 27 mmol/L (21-32) Anion Gap 10 (6-14) Blood Urea Nitrogen 13 mg/dL (8-26) Creatinine 1.0 mg/dL (0.7-1.3) Estimated GFR (Cockcroft-Gault) 77.6 BUN/Creatinine Ratio 13 (6-20) Glucose Level 99 mg/dL (70-99) Calcium Level 9.1 mg/dL (8.5-10.1) Magnesium Level 2.1 mg/dL (1.8-2.4) Total Bilirubin 0.8 mg/dL (0.2-1.0) Aspartate Amino Transf (AST/SGOT) 50 U/L (15-37) Alanine Aminotransferase (ALT/SGPT) 73 U/L (16-63) Alkaline Phosphatase 96 U/L (46-116) Troponin I High Sensitivity 7849 ng/L (4-75) YO-Wsx-K-Type Natriuretic Peptide 1124 pg/mL (0-124) Total Protein 8.0 g/dL (6.4-8.2) Albumin 3.9 g/dL (3.4-5.0) Albumin/Globulin Ratio 1.0 (1.0-1.7) Lipase 112 U/L (73-393) Urine Collection Type Unknown Urine Color [place] Urine Clarity Clear Urine pH 5.5 (<5.0-8.0) Urine Specific [place] 1.025 (1.000-1.030) Urine Protein Negative mg/dL (NEG-TRACE) Urine Glucose (UA) Negative mg/dL (NEG) Urine Ketones (Stick) Negative mg/dL (NEG) Urine Blood Trace (NEG) Urine Nitrite Negative (NEG) Urine Bilirubin Negative (NEG) Urine Urobilinogen Dipstick 1.0 mg/dL (0.2 mg/dL) Urine Leukocyte Esterase Negative (NEG) Urine RBC 3-5 /HPF (0-2) Urine WBC 1-4 /HPF (0-4) Urine Bacteria 0 /HPF (0-FEW) Urine Mucus Mod /LPF Urine Opiates Screen Neg (NEG) Urine Methadone Screen Neg (NEG) Urine Barbiturates Neg (NEG) Urine Phencyclidine Screen Neg (NEG) Urine Amphetamine/Methamphetamine Neg (NEG) Urine Benzodiazepines Screen Neg (NEG) Urine Cocaine Screen Pos (NEG) Urine Cannabinoids Screen Pos (NEG) Urine Ethyl Alcohol Neg (NEG) Laboratory Tests Test 07/05/21 14:20 07/05/21 17:05 White Blood Count 9.1 x10^3/uL (4.0-11.0) Red Blood Count 4.74 x10^6/uL (4.30-5.70) Hemoglobin 14.9 g/dL (13.0-17.5) Hematocrit 43.1 % (39.0-53.0) Mean Corpuscular Volume 91 fL (79-100) Mean Corpuscular Hemoglobin 32 pg (25-35) Mean Corpuscular Hemoglobin Concent 35 g/dL (31-37) Red Cell Distribution Width 14.1 % (11.5-14.5) Platelet Count 290 x10^3/uL (140-400) Neutrophils (%) (Auto) 60 % (31-73) Lymphocytes (%) (Auto) 29 % (24-48) Monocytes (%) (Auto) 9 % (0-9) Eosinophils (%) (Auto) 1 % (0-3) Basophils (%) (Auto) 1 % (0-3) Neutrophils # (Auto) 5.5 x10^3/uL (1.8-7.7) Lymphocytes # (Auto) 2.7 x10^3/uL (1.0-4.8) Monocytes # (Auto) 0.8 x10^3/uL (0.0-1.1) Eosinophils # (Auto) 0.1 x10^3/uL (0.0-0.7) Basophils # (Auto) 0.1 x10^3/uL (0.0-0.2) Prothrombin Time 12.8 SEC (11.7-14.0) Prothromb Time International Ratio 1.0 (0.8-1.1) Sodium Level 141 mmol/L (136-145) Potassium Level 3.7 mmol/L (3.5-5.1) Chloride Level 104 mmol/L (98-107) Carbon Dioxide Level 27 mmol/L (21-32) Anion Gap 10 (6-14) Blood Urea Nitrogen 13 mg/dL (8-26) Creatinine 1.0 mg/dL (0.7-1.3) Estimated GFR (Cockcroft-Gault) 77.6 BUN/Creatinine Ratio 13 (6-20) Glucose Level 99 mg/dL (70-99) Calcium Level 9.1 mg/dL (8.5-10.1) Magnesium Level 2.1 mg/dL (1.8-2.4) Total Bilirubin 0.8 mg/dL (0.2-1.0) Aspartate Amino Transf (AST/SGOT) 50 U/L (15-37) Alanine Aminotransferase (ALT/SGPT) 73 U/L (16-63) Alkaline Phosphatase 96 U/L (46-116) Troponin I High Sensitivity 7849 ng/L (4-75) QQ-Juh-Z-Type Natriuretic Peptide 1124 pg/mL (0-124) Total Protein 8.0 g/dL (6.4-8.2) Albumin 3.9 g/dL (3.4-5.0) Albumin/Globulin Ratio 1.0 (1.0-1.7) Lipase 112 U/L (73-393) Urine Collection Type Unknown Urine Color [place] Urine Clarity Clear Urine pH 5.5 (<5.0-8.0) Urine Specific [place] 1.025 (1.000-1.030) Urine Protein Negative mg/dL (NEG-TRACE) Urine Glucose (UA) Negative mg/dL (NEG) Urine Ketones (Stick) Negative mg/dL (NEG) Urine Blood Trace (NEG) Urine Nitrite Negative (NEG) Urine Bilirubin Negative (NEG) Urine Urobilinogen Dipstick 1.0 mg/dL (0.2 mg/dL) Urine Leukocyte Esterase Negative (NEG) Urine RBC 3-5 /HPF (0-2) Urine WBC 1-4 /HPF (0-4) Urine Bacteria 0 /HPF (0-FEW) Urine Mucus Mod /LPF Urine Opiates Screen Neg (NEG) Urine Methadone Screen Neg (NEG) Urine Barbiturates Neg (NEG) Urine Phencyclidine Screen Neg (NEG) Urine Amphetamine/Methamphetamine Neg (NEG) Urine Benzodiazepines Screen Neg (NEG) Urine Cocaine Screen Pos (NEG) Urine Cannabinoids Screen Pos (NEG) Urine Ethyl Alcohol Neg (NEG) Assessment/Plan Assessment/Plan Weakness, Fatigue, Hx STEMI -Admit -Cards consult for recent STEMI -PT OT -Home meds resumed per Cardiology, much thank yous -DVT prophylaxis Justifications for Admission Other Justification PETE ALBERT MD Jul 05, 2021 18:01
--- NOTE | 2021-07-05 18:07 | EKG ---
[facility] [address] [place] [address] Test Date: 2021-07-05 Test Time: 14:00:52 Pat Name: JOSSELINE DAI Department: Room: [facility] Gender: M Heel Reducer: : 1965 Requested By: CAITLIN TRIANA Order Number: [id number] Reading MD: Luis Enrique Guzman Measurements Intervals [place] Rate: 68 P: 21 RI: 162 QRS: -88 QRSD: 94 T: 66 QT: 366 QTc: 389 Interpretive Statements SINUS RHYTHM ABNORMAL LEFT AXIS DEVIATION LOW LIMB LEAD VOLTAGE QRS(T) CONTOUR ABNORMALITY CONSISTENT WITH ANTERIOR INFARCT PROBABLY OLD CONSISTENT WITH INFEROLATERAL INFARCT PROBABLY OLD ABNORMAL ECG RI6.01 Electronically Signed On 07-08-2021 9:37:01 HORTICULTURAL NURSERY ASSISTANT by Luis Enrique Guzman
[2021-07-05 18:30] VITALS: BP 132/92
[2021-07-05] MEDS ORDERED: ATORVASTATIN CALCIUM 40 MG TABLET. PO SCH (21:00)
[2021-07-05 22:04] VITALS: BP 109/68
[2021-07-05] MEDS ORDERED: ACETAMINOPHEN 325 MG TABLET. PO PRN (23:45)
[2021-07-05] MEDS ORDERED: oxyCODONE/APAP 5/325 1 TAB TABLET PO PRN ×2 (23:45)
[2021-07-05] MEDS ORDERED: ZOLPIDEM 5 MG TABLET. PO PRN (23:45)
[2021-07-05] MEDS ORDERED: oxyCODONE IR 5 MG TABLET PO PRN (23:45)
[2021-07-05] MEDS ORDERED: ONDANSETRON PF 4 MG/2 ML VIAL. IVP PRN (23:45)
[2021-07-05] MEDS ORDERED: CALCIUM CARBONATE 500 MG TAB.CHEW PO PRN (23:45)
[2021-07-05] MEDS ORDERED: ELECTROLYTE (NON-ICU) PROTOCOL. MC PRN (23:45)
[2021-07-06 03:05] VITALS: BP 108/69
[2021-07-06] MEDS ORDERED: HEPARIN for SUB-Q USE 5,000 UNIT/ML VIAL. SQ SCH (06:00)
[2021-07-06] MEDS: PANTOPRAZOLE 40 MG TABLET.DR. PO SCH (06:07)
[2021-07-06 07:00] VITALS: BP 107/74
[2021-07-06] MEDS ORDERED: ASPIRIN ENTERIC COATED 325 MG TABLET.DR. PO SCH (08:00)
[2021-07-06] MEDS: CLOPIDOGREL BISULFATE 75 MG TABLET PO SCH (08:18)
[2021-07-06] MEDS ORDERED: SENNOSIDES/DOCUSATE 8.6/50MG TABLET. PO SCH (09:00)
[2021-07-06] MEDS ORDERED: LISINOPRIL 5 MG TABLET. PO SCH (09:00)
[2021-07-06] MEDS ORDERED: MULTIVIT INFUSN,ADULT 4,VIT K 10 ML, THIAMINE INJ 100 MG, FOLIC ACID INJ 1 MG in IV NOR... IV SCH (09:00)
[2021-07-06 11:00] VITALS: BP_SYST 114; BP_SYST 98; BP_DIAS 53; BP_DIAS 73
--- NOTE | 2021-07-06 11:31 | PDOC ---
[facility] PROGRESS NOTE Date of Service DOS: DATE: 07/06/21 TIME: 11:27 Chief Complaint Chief Complaint Generalized weakness and fatigue Exertional chest pain likely due to stable angina Recent history of STEMI Polysubstance abuse, positive for cocaine and cannabinoids Mild transaminitis Medical nonadherence Continue telemetry monitoring Continue to trend troponins -Cards consult for recent STEMI -PT OT -Home meds resumed per Cardiology, much thank yous -DVT prophylaxis History of Present Illness History of Present Illness 55 year old male who presents with went out for a 40-minute walk in the neighborhood today after having a STEMI on July 01 and was discharged 2 days ago. Patient came home and was having epigastric heaviness and shortness of breath and became very weak and could not even eat. Patient has not started on any medications that they prescribed for him such as high cholesterol medication, hypertension medication, aspirin or blood thinner medication. states they cannot afford it and they are be going to be able to pick it up today after 1600. Patient states he does not have any chest heaviness. He denies nausea, vomiting, diarrhea, fever, cough, syncope, dizziness, headache, focal weakness or numbness and tingling 07/06/2021 No acute events overnight. Patient seen and examined bedside. Lying comfortably in bed without any chest pain at this time. Patient's chart, labs, images were reviewed and discussed with RN Vitals/I&O Vitals/I&O: Vital Signs Date Time Temp Pulse Resp B/P (MAP) Pulse Ox O2 Delivery O2 Flow Rate FiO2 07/06/21 08:19 53 107/74 07/06/21 07:00 98.4 16 97 Room Air 98.4 I & O 07/05/21 07/05/21 07/06/21 15:00 23:00 07:00 Intake Total 200 ml 700 ml Balance 200 ml 700 ml Physical Exam Lungs: Clear Labs Labs: Laboratory Tests Test 07/05/21 14:20 07/05/21 17:05 07/05/21 17:35 07/05/21 20:35 White Blood Count 9.1 x10^3/uL (4.0-11.0) Red Blood Count 4.74 x10^6/uL (4.30-5.70) Hemoglobin 14.9 g/dL (13.0-17.5) Hematocrit 43.1 % (39.0-53.0) Mean Corpuscular Volume 91 fL (79-100) Mean Corpuscular Hemoglobin 32 pg (25-35) Mean Corpuscular Hemoglobin Concent 35 g/dL (31-37) Red Cell Distribution Width 14.1 % (11.5-14.5) Platelet Count 290 x10^3/uL (140-400) Neutrophils (%) (Auto) 60 % (31-73) Lymphocytes (%) (Auto) 29 % (24-48) Monocytes (%) (Auto) 9 % (0-9) Eosinophils (%) (Auto) 1 % (0-3) Basophils (%) (Auto) 1 % (0-3) Neutrophils # (Auto) 5.5 x10^3/uL (1.8-7.7) Lymphocytes # (Auto) 2.7 x10^3/uL (1.0-4.8) Monocytes # (Auto) 0.8 x10^3/uL (0.0-1.1) Eosinophils # (Auto) 0.1 x10^3/uL (0.0-0.7) Basophils # (Auto) 0.1 x10^3/uL (0.0-0.2) Prothrombin Time 12.8 SEC (11.7-14.0) Prothromb Time International Ratio 1.0 (0.8-1.1) Sodium Level 141 mmol/L (136-145) Potassium Level 3.7 mmol/L (3.5-5.1) Chloride Level 104 mmol/L (98-107) Carbon Dioxide Level 27 mmol/L (21-32) Anion Gap 10 (6-14) Blood Urea Nitrogen 13 mg/dL (8-26) Creatinine 1.0 mg/dL (0.7-1.3) Estimated GFR (Cockcroft-Gault) 77.6 BUN/Creatinine Ratio 13 (6-20) Glucose Level 99 mg/dL (70-99) Calcium Level 9.1 mg/dL (8.5-10.1) Magnesium Level 2.1 mg/dL (1.8-2.4) Total Bilirubin 0.8 mg/dL (0.2-1.0) Aspartate Amino Transf (AST/SGOT) 50 U/L (15-37) Alanine Aminotransferase (ALT/SGPT) 73 U/L (16-63) Alkaline Phosphatase 96 U/L (46-116) Troponin I High Sensitivity 7849 ng/L (4-75) 7931 ng/L (4-75) 6746 ng/L (4-75) DO-Mwk-P-Type Natriuretic Peptide 1124 pg/mL (0-124) Total Protein 8.0 g/dL (6.4-8.2) Albumin 3.9 g/dL (3.4-5.0) Albumin/Globulin Ratio 1.0 (1.0-1.7) Lipase 112 U/L (73-393) Urine Collection Type Unknown Urine Color [place] Urine Clarity Clear Urine pH 5.5 (<5.0-8.0) Urine Specific [place] 1.025 (1.000-1.030) Urine Protein Negative mg/dL (NEG-TRACE) Urine Glucose (UA) Negative mg/dL (NEG) Urine Ketones (Stick) Negative mg/dL (NEG) Urine Blood Trace (NEG) Urine Nitrite Negative (NEG) Urine Bilirubin Negative (NEG) Urine Urobilinogen Dipstick 1.0 mg/dL (0.2 mg/dL) Urine Leukocyte Esterase Negative (NEG) Urine RBC 3-5 /HPF (0-2) Urine WBC 1-4 /HPF (0-4) Urine Bacteria 0 /HPF (0-FEW) Urine Mucus Mod /LPF Urine Opiates Screen Neg (NEG) Urine Methadone Screen Neg (NEG) Urine Barbiturates Neg (NEG) Urine Phencyclidine Screen Neg (NEG) Urine Amphetamine/Methamphetamine Neg (NEG) Urine Benzodiazepines Screen Neg (NEG) Urine Cocaine Screen Pos (NEG) Urine Cannabinoids Screen Pos (NEG) Urine Ethyl Alcohol Neg (NEG) Assessment and Plan Assessmemt and Plan Problems Medical Problems: (1) Chest pain Status: Acute Comment Review of Relevant I have reviewed the following items karlos (where applicable) has been applied. Medications: Current Medications Medications (Trade) Dose Ordered Sig/Ole Route PRN Reason Start Time Stop Time Status Last Admin Dose Admin Famotidine (Pepcid Vial) 20 mg 1X ONCE IVP 07/05/21 15:00 07/05/21 15:01 DC 07/05/21 15:27 Aspirin (Lui Aspirin) 325 mg 1X ONCE PO 07/05/21 15:30 07/05/21 15:31 DC 07/05/21 15:27 Aspirin (Ecotrin) 325 mg DAILYWBKFT PO 07/06/21 08:00 07/06/21 08:18 Atorvastatin Calcium (Lipitor) 40 mg QHS PO 07/05/21 21:00 07/05/21 20:49 Clopidogrel Bisulfate (Plavix) 75 mg DAILY PO 07/05/21 16:00 07/06/21 08:18 Lisinopril (Prinivil) 5 mg DAILY PO 07/06/21 09:00 07/06/21 08:19 Pantoprazole Sodium (Protonix) 40 mg DAILYAC PO 07/05/21 16:00 07/06/21 06:07 Clopidogrel Bisulfate (Plavix) 225 mg 1X ONCE PO 07/05/21 16:45 07/05/21 16:46 DC 07/05/21 20:49 Ondansetron HCl (Zofran) 4 mg PRN Q6HRS PRN IVP NAUSEA/VOMITING 1ST CHOICE 07/05/21 23:45 07/06/21 10:04 Senna/Docusate Sodium (Senna Plus) 1 tab BID PO 07/06/21 09:00 07/06/21 08:18 Multivitamins 10 ml/Thiamine HCl 100 mg/Folic Acid 1 mg/Sodium Chloride 1,011.2 ml @ 100 mls/ hr DAILY IV 07/06/21 09:00 07/10/21 19:07 07/06/21 09:03 Heparin Sodium (Porcine) (Heparin Sodium) 5,000 unit Q8HRS SQ 07/06/21 06:00 07/06/21 06:08 Justifications for Admission Other Justification JAME YOUNGER MD Jul 06, 2021 11:31
--- NOTE | 2021-07-06 11:35 | SNU/HH DC ---
DISCHARGE ORDERS DISCHARGE INFORMATION: DISCHARGE DATE: Jul 06, 2021 FINAL DIAGNOSIS Problems Medical Problems: (1) Chest pain Status: Acute CONDITION ON DISCHARGE: Stable CODE STATUS: Code Status: Full POST DISCHARGE ORDERS: ACTIVITY ORDERS: Activity as tolerated WEIGHT BEARING STATUS: No restrictions FOLLOW-UP: PHYSICIAN FOLLOW-UP: PCP within 2 weeks of discharge ADDITIONAL FOLLOW-UP: Cardiology as needed TREATMENT/EQUIPMENT ORDERS: ADAPTIVE EQUIPMENT NEEDED: None DISCHARGE MEDICATIONS: Home Meds Active Scripts Pantoprazole Sodium (PANTOPRAZOLE SODIUM ) 40 Mg Tablet.dr, 40 MG PO DAILYAC for GERD for 30 Days, #30 TAB.SR 2 Refills Prov:JAME YOUNGER MD 07/03/21 Clopidogrel Bisulfate (CLOPIDOGREL) 75 Mg Tablet, 75 MG PO DAILY for 2 for 30 Days, #30 TAB Prov:JAME YOUNGER MD 07/03/21 Nitroglycerin (NITROSTAT) 0.4 Mg Tab.subl, 0.4 MG SL PRN Q5MIN PRN for CHEST PAIN for 30 Days, #30 TAB 2 Refills Prov:JAME YOUNGER MD 07/03/21 Lisinopril (LISINOPRIL) 5 Mg Tablet, 5 MG PO DAILY for blood pressure for 30 Days, #30 TAB Prov:JAME YOUNGER MD 07/03/21 Aspirin (ASPIRIN EC) 325 Mg Tablet.dr, 325 MG PO DAILYWBKFT for heart disease for 30 Days, #30 TAB.SR 2 Refills Prov:JAME YOUNGER MD 07/03/21 Atorvastatin Calcium (ATORVASTATIN CALCIUM) 20 Mg Tablet, 40 MG PO QHS for cholesterol for 30 Days, #60 TAB 2 Refills Prov:JAME YOUNGER MD 07/03/21 Hydrocodone/Apap 5-325 (NORCO 5-325 TABLET) 1 Each Tablet, 1-2 TAB PO Q4-6HRS, #10 TAB Prov:BARAK SHETTY ASTRONOMY DEPARTMENT CHAIR 11/04/16 Discontinued Scripts Cyclobenzaprine Hcl (CYCLOBENZAPRINE HCL) 10 Mg Tablet, 1 TAB PO TID, #30 TAB Prov:BARAK SHETTY ASTRONOMY DEPARTMENT CHAIR 11/04/16 Naproxen (NAPROXEN) 500 Mg Tablet., 1 TAB PO BID, #60 TAB 2 Refills Prov:BARAK SHETTY ASTRONOMY DEPARTMENT CHAIR 11/04/16 JAME YOUNGER MD Jul 06, 2021 11:34
--- NOTE | 2021-07-06 12:29 | PDOC ---
PROGRESS NOTES Date of Service: DATE: 07/06/21 TIME: 12:29 Subjective Subjective Denied any chest pain or shortness of breath today Objective Objective Vital Signs Date Time Temp Pulse Resp B/P (MAP) Pulse Ox O2 Delivery O2 Flow Rate FiO2 07/06/21 08:19 53 107/74 07/06/21 08:00 Room Air 07/06/21 07:00 98.4 16 97 98.4 Intake and Output0 07/06/21 06:59 Intake Total 600 ml Balance 600 ml Intake Oral 600 ml Assessment Assessment 1. Atypical CP: more on epigastric region which is now resolved. No acute EKG changes 2. Recent STEMI: trop was 176012 and has trended down to 7849 3. CAD; s/p PCI/TRINO to the LAD on 07/01/2021 4. Ischemic cardiomyopathy; echo with LVEF 35%. appears compensated 5. Hypertension; controlled 6. Cocaine use; reinforced importance of cessation Recommendations Secondary prevention including DAPT with ASA/Plavix. High dose statin therapy No BB with bradycardia Risk stratification modification Cardiac rehab referral Reassess LV systolic function on an outpatient basis to assess need for AICD for primary prevention of SCD Plan Plan of Care Problems Medical Problems: (1) Chest pain Status: Acute Comment Review of Relevant I have reviewed the following items karlos (where applicable) has been applied. Labs Laboratory Tests Test 07/05/21 14:20 07/05/21 17:05 07/05/21 17:35 07/05/21 20:35 White Blood Count 9.1 x10^3/uL (4.0-11.0) Red Blood Count 4.74 x10^6/uL (4.30-5.70) Hemoglobin 14.9 g/dL (13.0-17.5) Hematocrit 43.1 % (39.0-53.0) Mean Corpuscular Volume 91 fL (79-100) Mean Corpuscular Hemoglobin 32 pg (25-35) Mean Corpuscular Hemoglobin Concent 35 g/dL (31-37) Red Cell Distribution Width 14.1 % (11.5-14.5) Platelet Count 290 x10^3/uL (140-400) Neutrophils (%) (Auto) 60 % (31-73) Lymphocytes (%) (Auto) 29 % (24-48) Monocytes (%) (Auto) 9 % (0-9) Eosinophils (%) (Auto) 1 % (0-3) Basophils (%) (Auto) 1 % (0-3) Neutrophils # (Auto) 5.5 x10^3/uL (1.8-7.7) Lymphocytes # (Auto) 2.7 x10^3/uL (1.0-4.8) Monocytes # (Auto) 0.8 x10^3/uL (0.0-1.1) Eosinophils # (Auto) 0.1 x10^3/uL (0.0-0.7) Basophils # (Auto) 0.1 x10^3/uL (0.0-0.2) Prothrombin Time 12.8 SEC (11.7-14.0) Prothromb Time International Ratio 1.0 (0.8-1.1) Sodium Level 141 mmol/L (136-145) Potassium Level 3.7 mmol/L (3.5-5.1) Chloride Level 104 mmol/L (98-107) Carbon Dioxide Level 27 mmol/L (21-32) Anion Gap 10 (6-14) Blood Urea Nitrogen 13 mg/dL (8-26) Creatinine 1.0 mg/dL (0.7-1.3) Estimated GFR (Cockcroft-Gault) 77.6 BUN/Creatinine Ratio 13 (6-20) Glucose Level 99 mg/dL (70-99) Calcium Level 9.1 mg/dL (8.5-10.1) Magnesium Level 2.1 mg/dL (1.8-2.4) Total Bilirubin 0.8 mg/dL (0.2-1.0) Aspartate Amino Transf (AST/SGOT) 50 U/L (15-37) Alanine Aminotransferase (ALT/SGPT) 73 U/L (16-63) Alkaline Phosphatase 96 U/L (46-116) Troponin I High Sensitivity 7849 ng/L (4-75) 7931 ng/L (4-75) 6746 ng/L (4-75) MY-Kdb-G-Type Natriuretic Peptide 1124 pg/mL (0-124) Total Protein 8.0 g/dL (6.4-8.2) Albumin 3.9 g/dL (3.4-5.0) Albumin/Globulin Ratio 1.0 (1.0-1.7) Lipase 112 U/L (73-393) Urine Collection Type Unknown Urine Color [place] Urine Clarity Clear Urine pH 5.5 (<5.0-8.0) Urine Specific [place] 1.025 (1.000-1.030) Urine Protein Negative mg/dL (NEG-TRACE) Urine Glucose (UA) Negative mg/dL (NEG) Urine Ketones (Stick) Negative mg/dL (NEG) Urine Blood Trace (NEG) Urine Nitrite Negative (NEG) Urine Bilirubin Negative (NEG) Urine Urobilinogen Dipstick 1.0 mg/dL (0.2 mg/dL) Urine Leukocyte Esterase Negative (NEG) Urine RBC 3-5 /HPF (0-2) Urine WBC 1-4 /HPF (0-4) Urine Bacteria 0 /HPF (0-FEW) Urine Mucus Mod /LPF Urine Opiates Screen Neg (NEG) Urine Methadone Screen Neg (NEG) Urine Barbiturates Neg (NEG) Urine Phencyclidine Screen Neg (NEG) Urine Amphetamine/Methamphetamine Neg (NEG) Urine Benzodiazepines Screen Neg (NEG) Urine Cocaine Screen Pos (NEG) Urine Cannabinoids Screen Pos (NEG) Urine Ethyl Alcohol Neg (NEG) Medications Current Medications Acetaminophen (Tylenol) 650 mg PRN Q6HRS PRN PO Headaches, Temp > 101.5F; Start 07/05/21 at 23:45 Aspirin (Lui Aspirin) 325 mg 1X ONCE PO Last administered on 07/05/21at 15:27; Start 07/05/21 at 15:30; Stop 07/05/21 at 15:31; Status DC Aspirin (Ecotrin) 325 mg DAILYWBKFT PO Last administered on 07/06/21at 08:18; Start 07/06/21 at 08:00 Atorvastatin Calcium (Lipitor) 40 mg QHS PO Last administered on 07/05/21at 20:49; Start 07/05/21 at 21:00 Calcium Carbonate/ Glycine (Tums) 500 mg PRN Q3HRS PRN PO UPSET STOMACH; Start 07/05/21 at 23:45 Clopidogrel Bisulfate (Plavix) 75 mg DAILY PO Last administered on 07/06/21at 08:18; Start 07/05/21 at 16:00 Clopidogrel Bisulfate (Plavix) 225 mg 1X ONCE PO Last administered on 07/05/21at 20:49; Start 07/05/21 at 16:45; Stop 07/05/21 at 16:46; Status DC Famotidine (Pepcid Vial) 20 mg 1X ONCE IVP Last administered on 07/05/21at 15:27; Start 07/05/21 at 15:00; Stop 07/05/21 at 15:01; Status DC Folic Acid (Folic Acid) 1 mg DAILY PO ; Start 07/10/21 at 09:00 Heparin Sodium (Porcine) (Heparin Sodium) 5,000 unit Q8HRS SQ Last administered on 07/06/21at 06:08; Start 07/06/21 at 06:00 Info (Non-Icu Electrolyte Protocol) 1 ea PRN DAILY PRN MC SEE COMMENTS; Start 07/05/21 at 23:45 Lisinopril (Prinivil) 5 mg DAILY PO Last administered on 07/06/21at 08:19; Start 07/06/21 at 09:00 Lorazepam (Ativan) 4 mg PRN Q1HR PRN PO For CIWA 8-14; Start 07/05/21 at 23:45 Lorazepam (Ativan) 8 mg PRN Q1HR PRN PO For CIWA 15 or greater; Start 07/05/21 at 23:45 Multivitamins (Thera M Plus) 1 tab DAILY PO ; Start 07/10/21 at 09:00 Multivitamins 10 ml/Thiamine HCl 100 mg/Folic Acid 1 mg/Sodium Chloride 1,011.2 ml @ 100 mls/ hr DAILY IV Last administered on 07/06/21at 09:03; Start 07/06/21 at 09:00; Stop 07/10/21 at 19:07 Ondansetron HCl (Zofran) 4 mg PRN Q6HRS PRN IVP NAUSEA/VOMITING 1ST CHOICE Last administered on 07/06/21at 10:04; Start 07/05/21 at 23:45 Oxycodone HCl (Roxicodone) 5 mg PRN Q3HRS PRN PO BREAKTHROUGH PAIN; Start 07/05/21 at 23:45 Oxycodone/ Acetaminophen (Percocet 5/325) 1 tab PRN Q4HRS PRN PO MILD PAIN, 1ST CHOICE; Start 07/05/21 at 23:45 Oxycodone/ Acetaminophen (Percocet 5/325) 2 tab PRN Q4HRS PRN PO MODERATE PAIN, SEVERE PAIN; Start 07/05/21 at 23:45 Pantoprazole Sodium (Protonix) 40 mg DAILYAC PO Last administered on 07/06/21at 06:07; Start 07/05/21 at 16:00 Senna/Docusate Sodium (Senna Plus) 1 tab BID PO Last administered on 07/06/21at 08:18; Start 07/06/21 at 09:00 Thiamine Mononitrate (Vitamin B-1) 100 mg DAILY PO ; Start 07/10/21 at 09:00 Zolpidem Tartrate (Ambien) 5 mg PRN QHS PRN PO INSOMNIA, MAY REPEAT IN 1HR; Start 07/05/21 at 23:45 Vitals/I & O Vital Sign - Last 24 Hours 07/05/21 07/05/21 07/05/21 07/05/21 14:12 14:42 15:12 15:30 Temp 98.2 98.2 Pulse 68 58 56 57 Resp 16 16 18 16 B/P (MAP) 141/91 (108) 125/80 (95) 127/81 (96) 117/81 (93) Pulse Ox 99 97 96 98 O2 Delivery Room Air Room Air Room Air Room Air 07/05/21 07/05/21 07/05/21 07/05/21 15:45 16:20 16:45 18:02 Pulse 56 58 60 62 Resp 15 16 19 19 B/P (MAP) 134/83 (100) 121/82 (95) 113/89 (97) 122/80 (94) Pulse Ox 95 99 98 96 O2 Delivery Room Air Room Air Room Air Room Air 07/05/21 07/05/21 07/05/21 07/06/21 18:30 20:17 22:04 03:05 Temp 97.6 98.9 98.4 97.6 98.9 98.4 Pulse 108 57 60 Resp 20 16 16 B/P (MAP) 132/92 (105) 109/68 (82) 108/69 (82) Pulse Ox 97 90 92 O2 Delivery Room Air Room Air Room Air Room Air 07/06/21 07/06/21 07/06/21 07:00 08:00 08:19 Temp 98.4 98.4 Pulse 53 53 Resp 16 B/P (MAP) 107/74 (85) 107/74 Pulse Ox 97 O2 Delivery Room Air Room Air Intake and Output 07/05/21 07/05/21 07/06/21 14:59 22:59 06:59 Intake Total 200 ml 400 ml Balance 200 ml 400 ml JAMIA BURROWS MD Jul 06, 2021 12:29
--- NOTE | 2021-07-06 15:52 | NUR ---
Discharge Note: [facility] Discharge instructions and discharge home medications reviewed with the patient and a copy given. All questions have been answered and understanding verbalized. The following instructions and handouts were given: Discussed with the patient medication assistance and PCP follow up. Discussed [facility] which [facility] included in the 4 $ list, 15 $ for the atorvastatin and clopidogrel. Gave discount coupon from [facility] and also phone numbers of resources for prescription assistance. Adherence to medications emphasized. The patient said [facility] and a primary care clinic for the insured is near their house. Patient verbalized he would make sure he gets the medicine and follow up in the clinic. Discontinued lines and drains: peripheral IV intact, patient tolerated removal, no complications noted Patient discharged to home with self care via at 1445.
[2021-07-10] MEDS ORDERED: FOLIC ACID 1 MG TABLET. PO SCH (09:00)
[2021-07-10] MEDS ORDERED: THIAMINE 100 MG TABLET. PO SCH (09:00)
[2021-07-10] MEDS ORDERED: MULTIVITAMIN with MINERAL TABLET. PO SCH (09:00)
--- NOTE | 2021-07-12 16:33 | PDOC3 ---
[facility]-Discharge Summary Date of Admission: Date of Admission: Jul 05, 2021 Date of Discharge: Date of Discharge: Jul 06, 2021 Discharge Diagnosis: Discharge Diagnosis: Generalized weakness and fatigue Exertional chest pain likely due to stable angina Recent history of STEMI Polysubstance abuse, positive for cocaine and cannabinoids Mild transaminitis Medical nonadherence Consults: Consults: cardiology Recommendations Secondary prevention including DAPT with ASA/Plavix. High dose statin therapy No BB with bradycardia Risk stratification modification Cardiac rehab referral Reassess LV systolic function on an outpatient basis to assess need for AICD for primary prevention of SCD Hospital Course: Hospital Course: 55 year old male who presents with went out for a 40-minute walk in the neighborhood today after having a STEMI on July 01 and was discharged 2 days ago. Patient came home and was having epigastric heaviness and shortness of breath and became very weak and could not even eat. Patient has not started on any medications that they prescribed for him such as high cholesterol medication, hypertension medication, aspirin or blood thinner medication. states they cannot afford it and they are be going to be able to pick it up today after 1600. Patient states he does not have any chest heaviness. He denies nausea, vomiting, diarrhea, fever, cough, syncope, dizziness, headache, focal weakness or numbness and tingling 07/06/2021 No acute events overnight. Patient seen and examined bedside. Lying comfortably in bed without any chest pain at this time. Patient's chart, labs, images were reviewed and discussed with RN By day of discharge, pt was clinically stable and ready for discharge. CP free and evaluated by cardiolgoy. Please see recommendations above. Rest of hospital course was uneventful Disposition: Disposition/Orders: D/C to Home Activity: Activity: Resume previous activity Diet: Diet: Cardiac Medications: Home Meds Active Scripts Pantoprazole Sodium (PANTOPRAZOLE SODIUM ) 40 Mg Tablet.dr, 40 MG PO DAILYAC for GERD for 30 Days, #30 TAB.SR 2 Refills Prov:JAME YOUNGER MD 07/03/21 Clopidogrel Bisulfate (CLOPIDOGREL) 75 Mg Tablet, 75 MG PO DAILY for 2 for 30 Days, #30 TAB Prov:JAME YOUNGER MD 07/03/21 Nitroglycerin (NITROSTAT) 0.4 Mg Tab.subl, 0.4 MG SL PRN Q5MIN PRN for CHEST PAIN for 30 Days, #30 TAB 2 Refills Prov:JAME YOUNGER MD 07/03/21 Lisinopril (LISINOPRIL) 5 Mg Tablet, 5 MG PO DAILY for blood pressure for 30 Days, #30 TAB Prov:JAME YOUNGER MD 07/03/21 Aspirin (ASPIRIN EC) 325 Mg Tablet.dr, 325 MG PO DAILYWBKFT for heart disease for 30 Days, #30 TAB.SR 2 Refills Prov:JAME YOUNGER MD 07/03/21 Atorvastatin Calcium (ATORVASTATIN CALCIUM) 20 Mg Tablet, 40 MG PO QHS for cholesterol for 30 Days, #60 TAB 2 Refills Prov:JAME YOUNGER MD 07/03/21 Hydrocodone/Apap 5-325 (NORCO 5-325 TABLET) 1 Each Tablet, 1-2 TAB PO Q4-6HRS, #10 TAB Prov:BARAK SHETTY ASPHALT STILL OPERATOR 11/04/16 Scheduled Aspirin (Aspirin Ec), 325 MG PO DAILYWBKFT Atorvastatin Calcium (Atorvastatin Calcium), 40 MG PO QHS Clopidogrel Bisulfate (Clopidogrel), 75 MG PO DAILY Hydrocodone/Apap 5-325 ([place] 5-325 Tablet), 1-2 TAB PO Q4-6HRS Lisinopril (Lisinopril), 5 MG PO DAILY Pantoprazole Sodium (Pantoprazole Sodium ), 40 MG PO DAILYAC Scheduled PRN Nitroglycerin (Nitrostat), 0.4 MG SL PRN Q5MIN PRN for CHEST PAIN Total Time: Total Time: Total time spent was 32 minutes in preparing scripts, discharge planning with SW and RN, and preparing this discharge summary. Justicifation of Admission Dx: Justifications for Admission: Justification of Admission Dx: Yes JAME YOUNGER MD Jul 12, 2021 16:33
== END 2021-07-06 14:45 | disposition home or self-care (01) ==
LOC: ER 13:38 → 6 SOUTH 15:45
PROVIDERS: ADMIT Student in an Organized Health Care Education/Training Program; ATTEND Student in an Organized Health Care Education/Training Program
DX: R07.89 Other chest pain (principal); Z20.822 Contact with and (suspected) exposure to COVID-19; I21.3 ST elevation (STEMI) myocardial infarction of unspecified site; I25.118 Atherosclerotic heart disease of native coronary artery with other forms of angina pectoris; I25.5 Ischemic cardiomyopathy; I10 Essential (primary) hypertension; F14.10 Cocaine abuse, uncomplicated; R53.83 Other fatigue; R53.1 Weakness; I25.2 Old myocardial infarction; I42.8 Other cardiomyopathies; N20.0 Calculus of kidney; Z87.442 Personal history of urinary calculi; Z79.82 Long term (current) use of aspirin; Z87.891 Personal history of nicotine dependence; Z91.19 Patient's noncompliance with other medical treatment and regimen; Z98.61 Coronary angioplasty status
CPT/HCPCS: 36415; 71045; 80053; 80307; 81001; 83690; 83735; 83880; 84484; 85025; 85610; 93005; 96365; 96366; 96372; 96375; 97161; 99285; G0378; J1644; J2405; J3411; J3490; J7030; G0379

== ENCOUNTER 2021-11-02 16:08 | Emergency (ER) | payer OTHER ==
[~2021-11-02] VITALS: Ht 162.6 cm; Wt 85.0 kg
[2021-11-02] MEDS ORDERED: HYDR-2761 PO ×2 (16:53→17:25)
[2021-11-02] MEDS ORDERED: OFLO5DRO7 EACH EAR ×2 (16:53→17:25)
--- NOTE | 2021-11-02 16:54 | PHYS DOC ---
Past Medical History Past Medical History: Kidney Stone Past Surgical History: No Surgical History Additional Past Surgical Histo: KIDNEY STONES Smoking Status: Current Every Day Smoker Alcohol Use: Occasionally Drug Use: None General Adult EDM: Chief Complaint: EARACHE/EAR PAIN HPI: HPI: Patient is a 55 year old male who presents to the ED today complaining of 8 out of 10 sharp intermittent right ear pain, symptoms began a week ago. Patient states yesterday he noted drainage from the right ear. He states this morning he woke up with left ear pain with drainage. Reports history of previous ear canal infections. Denies any fever, denies any history of diabetes. Denies any coughing or congestion. Denies anything specifically exacerbating or relieving his pain. Review of Systems: Review of Systems: Constitutional: Denies fever or chills. [] HENT: Reports bilateral ear pain with drainage denies nasal congestion or sore throat. [] Musculoskeletal: Denies back pain or joint pain. [] Integument: Denies rash. [] Neurologic: Denies headache, focal weakness or sensory changes. [] Psychiatric: Denies depression or anxiety. [] Heart Score: C/O Chest Pain: N/A Risk Factors: Risk Factors: DM, Current or recent (<one month) smoker, HTN, HLP, family history of CAD, obesity. Risk Scores: Score 0 - 3: 2.5% MACE over next 6 weeks - Discharge Home Score 4 - 6: 20.3% MACE over next 6 weeks - Admit for Clinical Observation Score 7 - 10: 72.7% MACE over next 6 weeks - Early Invasive Strategies Allergies: Allergies: Allergies Coded Allergies Type Severity Reaction Last Updated Verified No Known Drug Allergies 04/25/15 No Physical Exam: PE: Constitutional: Well developed, well nourished, no acute distress, non-toxic appearance. [] HENT: Normocephalic, atraumatic, bilateral external ears normal, oropharynx moist, no oral exudates, nose normal. [] Right ear canal is mildly swollen, the ear canal is erythematous, there is trace drainage in the ear canal, the TM is visualized and does not appear infected, painful tragus on exam to the right ear. Left ear canal has small amount of swelling and erythema, no drainage, TM is normal. Skin: Warm, dry, no erythema, no rash. [] Back: No tenderness, no CVA tenderness. [] Extremities: No tenderness, no cyanosis, no clubbing, ROM intact, no edema. [] Neurologic: Alert and oriented X 3, normal motor function, normal sensory function, no focal deficits noted. [] Psychologic: Affect normal, judgement normal, mood normal. [] EKG: EKG: [] Radiology/Procedures: Radiology/Procedures: [] Course & Med Decision Making: Course & Med Decision Making Pertinent Labs and Imaging studies reviewed. (See chart for details) This a 55-year-old female patient with bilateral otitis media. Discharged with oflaxacin. Follow-up with ENT next week if symptoms do not improve Dragon Disclaimer: Dragon Disclaimer: This electronic medical record was generated, in whole or in part, using a voice recognition dictation system. Departure Departure Impression: Primary Impression: Otitis externa Qualified Codes: H60.393 - Other infective otitis externa, bilateral Disposition: HOME / SELF CARE / HOMELESS Condition: STABLE Referrals: NO PCP (PCP) ALEJANDRA OSMAN MD follow up in one week Patient Instructions: Otitis Media, Adult, [id number] Additional Instructions: You were seen for ear canal infection. Use the eardrops prescribed as ordered. Take the pain medicine as needed for pain. Follow-up with the provided ENT specialist in a week if symptoms continue Scripts Hydrocodone Bit/Acetaminophen (HYDROCODONE-APAP 5-325 ) 1 Tab Tablet 1 TAB PO PRN Q6HRS PRN for PAIN, #10 TAB 0 Refills Prov: BARAK SHETTY [employer] 11/02/21 Ofloxacin (OFLOXACIN) 5 Ml Drops 5 DROP EACH EAR BID, #5 ML 0 Refills Prov: BARAK SHETTY [employer] 11/02/21 Hydrocodone Bit/Acetaminophen (HYDROCODONE-APAP 5-325 ) 1 Tab Tablet 1 TAB PO PRN Q6HRS PRN for PAIN, #10 TAB 0 Refills Prov: BARAK SHETTY [employer] 11/02/21 Ofloxacin (OFLOXACIN) 5 Ml Drops 5 DROP EACH EAR BID for 7 Days, #5 ML 0 Refills Prov: POORNIMABARAK ZHAO [employer] 11/02/21 BARAK SHETTY [employer] Nov 02, 2021 16:54
[2021-11-02 17:39] VITALS: BP 111/78
== END 2021-11-02 17:30 | disposition home or self-care (01) ==
LOC: ER 16:08
DX: H60.393 Other infective otitis externa, bilateral (principal); F17.200 Nicotine dependence, unspecified, uncomplicated; Z87.442 Personal history of urinary calculi
CPT/HCPCS: 99283

== ENCOUNTER 2021-12-23 17:00 | Emergency (ER) | payer OTHER ==
[~2021-12-23] VITALS: Ht 160 cm; Wt 88.5 kg
[~2021-12-23 17:00] MED LIST changes: +HYDR-2761 PO; +OFLO5DRO7 EACH EAR; -OMEP20TA8 PO; +OMEP20TA91 PO
[2021-12-23 17:48] VITALS: BP 113/77
[2021-12-23] MEDS ORDERED: KETOROLAC 30 MG/ML VIAL. IM ONE (18:15)
[2021-12-23] MEDS ORDERED: LIDOCAINE (700MG/PATCH) PATCH. TD ONE (18:15)
--- NOTE | 2021-12-23 18:38 | RAD ---
EXAMINATION: Lumbar spine radiograph. VIEWS: 3 COMPARISON: None INDICATION:56 years, Male, low back pain. FINDINGS: There are 5 nonrib-bearing lumbar vertebra. The vertebral bodies are normal height. Grade 1 anterolis thesis of 5 over S1. Suggestion of chronic appearing L5 pars defect. No acute fracture or subluxation . No lytic or sclerotic lesion. Multilevel degenerative changes with disc space narrowing and anterio r osteophytes, worst at L5-S1. Multilevel bilateral facet arthropathy. Paravertebral soft tissue is u nremarkable. Cholecystectomy clips. IMPRESSION: 1. No acute osseous abnormality. 2. Grade 1 anterolisthesis of L5 over S1 with suggestion of chronic L5 pars defect. 3. Multilevel degenerative changes, worst at L5-S1. Electronically signed by: Onesimo Morillo MD (12/23/2021 6:35 PM) SHRUTHI
--- NOTE | 2021-12-23 19:01 | PHYS DOC ---
Past Medical History Past Medical History: Kidney Stone Past Surgical History: No Surgical History Additional Past Surgical Histo: KIDNEY STONES Smoking Status: Never Smoker Alcohol Use: None Drug Use: None General Adult EDM: Chief Complaint: BACK PAIN OR INJURY HPI: HPI: Patient is a 56 year old male presents with lower back pain that started approximately 1 week ago. 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 Patient states that progressively gotten worse. Pain worse with extension of his hip and standing up straight. Patient denies any numbness or tingling he denies any urinary incontinence denies any saddle anesthesia denies any fevers or chills. Review of Systems: Review of Systems: Constitutional: Denies fever or chills. [] Eyes: Denies change in visual acuity. [] HENT: Denies nasal congestion or sore throat. [] Respiratory: Denies cough or shortness of breath. [] Cardiovascular: Denies chest pain or edema. [] GI: Denies abdominal pain, nausea, vomiting, bloody stools or diarrhea. [] : Denies dysuria. [] Musculoskeletal: Low back pain denies back pain or joint pain. [] Integument: Denies rash. [] Neurologic: No saddle anesthesia no gait instability denies headache, focal weakness or sensory changes. [] Endocrine: Denies polyuria or polydipsia. [] Lymphatic: Denies swollen glands. [] Psychiatric: Denies depression or anxiety. [] Heart Score: Risk Factors: Risk Factors: DM, Current or recent (<one month) smoker, HTN, HLP, family history of CAD, obesity. Risk Scores: Score 0 - 3: 2.5% MACE over next 6 weeks - Discharge Home Score 4 - 6: 20.3% MACE over next 6 weeks - Admit for Clinical Observation Score 7 - 10: 72.7% MACE over next 6 weeks - Early Invasive Strategies Current Medications: Current Medications Medications (Trade) Dose Ordered Sig/Ole Start Time Stop Time Status Last Admin Dose Admin Ketorolac Tromethamine (Toradol 30mg Vial) 30 mg 1X ONCE 12/23/21 18:15 12/23/21 18:16 DC Lidocaine (Lidoderm) 1 patch 1X ONCE 12/23/21 18:15 12/23/21 18:16 DC Allergies: Allergies: Allergies Coded Allergies Type Severity Reaction Last Updated Verified No Known Drug Allergies 11/02/21 No Physical Exam: PE: Constitutional: Well developed, well nourished, no acute distress, non-toxic appearance. [] HENT: Normocephalic, atraumatic, bilateral external ears normal, oropharynx moist, no oral exudates, nose normal. [] Eyes: PERRLA, EOMI, conjunctiva normal, no discharge. [] Neck: Normal range of motion, no tenderness, supple, no stridor. [] Cardiovascular:Heart rate regular rhythm, no murmur [] Lungs & Thorax: Bilateral breath sounds clear to auscultation [] Abdomen: Bowel sounds normal, soft, no tenderness, no masses, no pulsatile masses. [] Skin: Warm, dry, no erythema, no rash. [] Back: Patient has spasm of the right lower lumbar region. No midline tendernes s. Extremities: No tenderness, no cyanosis, no clubbing, ROM intact, no edema. [] Neurologic: Alert and oriented X 3, normal motor function, normal sensory function, no focal deficits noted. [] Psychologic: Affect normal, judgement normal, mood normal. [] Current Patient Data: Vital Signs: Vital Signs Date Time Temp Pulse Resp B/P (MAP) Pulse Ox O2 Delivery O2 Flow Rate FiO2 12/23/21 17:48 98.4 65 20 113/77 (89) 98 Room Air 98.4 EKG: EKG: [] Radiology/Procedures: Radiology/Procedures: []EXAMINATION: Lumbar spine radiograph. VIEWS: 3 COMPARISON: None INDICATION:56 years, Male, low back pain. FINDINGS: There are 5 nonrib-bearing lumbar vertebra. The vertebral bodies are normal height. Grade 1 anterolisthesis of 5 over S1. Suggestion of chronic appearing L5 pars defect. No acute fracture or subluxation. No lytic or sclerotic lesion. Multilevel degenerative changes with disc space narrowing and anterior osteophytes, worst at L5-S1. Multilevel bilateral facet arthropathy. Paravertebral soft tissue is unremarkable. Cholecystectomy clips. IMPRESSION: 1. No acute osseous abnormality. 2. Grade 1 anterolisthesis of L5 over S1 with suggestion of chronic L5 pars defect. 3. Multilevel degenerative changes, worst at L5-S1. Course & Med Decision Making: Course & Med Decision Making Pertinent Labs and Imaging studies reviewed. (See chart for details) [] Dragon Disclaimer: Dragon Disclaimer: This electronic medical record was generated, in whole or in part, using a voice recognition dictation system. Departure Departure Impression: Primary Impression: Spondylarthritis Additional Impression: Lumbago Disposition: HOME / SELF CARE / HOMELESS Referrals: NO PCP (PCP) KAN CORTES Jr. DO Patient Instructions: Low Back Strain with [facility] BRITTNEY ARELLANO DO Dec 23, 2021 19:01
[2021-12-23] MEDS ORDERED: TRAM50TA PO (19:27)
[2021-12-23] MEDS ORDERED: LIDO1ADH63 TP (19:29)
== END 2021-12-23 20:17 | disposition home or self-care (01) ==
LOC: ER 17:00
DX: M47.816 Spondylosis without myelopathy or radiculopathy, lumbar region (principal); Z90.49 Acquired absence of other specified parts of digestive tract; Z87.442 Personal history of urinary calculi
CPT/HCPCS: 72100; 96372; 99283; J1885